=== PATIENT | male | born 1945 | race African-American/Black ===

== ENCOUNTER 2018-07-03 23:56 | Inpatient (IN) | payer OTHER, MEDICAID ==
[~2018-07-03] VITALS: Ht 157.5 cm; Wt 57.6 kg
[~2018-07-03 23:56] MED LIST: ALBUTEROL INH; ASPI-1159 PO; Aspirin PO; BACL-141 PO; BIMA2.5D4 EACHEYE; BRIM15DR2 EACHEYE; CARV3.1242 PO; FAMO40TA7 PO; FURO40TA5 PO; KLUD40 PO; LIP40 PO; LISI10TA5 PO; LISI2.5T47 PO; TAMS0.4C31 PO
[2018-07-04] MEDS ORDERED: METHYLPREDNISOLONE SOD SUCC 125 MG/2 ML VIAL IV STA (00:17)
[2018-07-04] MEDS ORDERED: IPRATROPIUM BROMIDE (0.02%) 0.5MG/2.5ML NEB HHN STA (00:17)
[2018-07-04] MEDS ORDERED: FUROSEMIDE 40MG/4ML VIAL IVP ONE (00:30)
[2018-07-04] MEDS ORDERED: MAGNESIUM 2 G PREMIX 50 ML IV ONE (00:30)
[2018-07-04 00:56] LABS: BASOPHILS % 0.5 % (0.0-2.0); EOSINOPHILS % 1.6 % (0.0-5.0); HEMATOCRIT. 46.5 % (42.0-52.0); HEMOGLOBIN. 15.2 g/dL (14.0-18.0); LYMPHOCYTES % 9.2 % (20.0-50.0); MEAN CORPUSCULAR HEMOGLOBIN 28.8 pg (28.0-32.0); MEAN PLATELET VOLUME 9.1 fl (7.4-10.4); MONOCYTES % 4.6 % (2.0-8.0); NEUTROPHILS % 84.1 % (40.0-76.0); PLATELET 201 x1000/uL (130-400); RED BLOOD CELL COUNT 5.29 mill/uL (4.7-6.1); RED CELL DISTRIBUTION WIDTH 15.4 % (11.6-14.6)
[2018-07-04 00:58] LABS: CHLORIDE 107 mEq/L (98-107)
[2018-07-04] MEDS: ALBUTEROL (0.083%) 2.5MG/3ML NEB HHN SCH ×4 (01:10→02:20)
[2018-07-04 01:57] LABS: INR 1.1; PROTHROMBIN TIME 10.8 sec (9.1-11.1)
[2018-07-04] MEDS ORDERED: AZITHROMYCIN 500 MG in DEXT 5% WATER 250 ML IV SCH (05:00)
[2018-07-04] MEDS ORDERED: CEFTRIAXONE 1 G PREMIX 50 ML IV SCH (05:00)
[2018-07-04] MEDS ORDERED: DIPHENHYDRAMINE 50MG/ML VIAL IV PRN (06:45)
[2018-07-04] MEDS ORDERED: CLONIDINE 0.1MG TABLET PO PRN (06:45)
[2018-07-04] MEDS ORDERED: HYDROCODONE/ACETAMINOPHEN 5/325MG TABLET PO PRN (06:45)
[2018-07-04] MEDS ORDERED: DOCUSATE SODIUM 100MG CAPSULE PO PRN (06:45)
[2018-07-04] MEDS ORDERED: NA PHOS,M-B/NA PHOS,DI-BA ENEMA 118ML PR PRN (06:45)
[2018-07-04] MEDS ORDERED: LEVOFLOXACIN 500MG PREMIX 100 ML IV SCH (06:45)
[2018-07-04] MEDS ORDERED: HYDROMORPHONE HCL/PF 2MG/ML CPJ IV PRN (06:45)
[2018-07-04] MEDS ORDERED: MAGNESIUM/ALUMINUM HYDROXIDE/SIMETHICONE 30ML UDC PO PRN (06:45)
[2018-07-04] MEDS ORDERED: GUAIFENESIN 200MG/10ML SUGAR FREE UDC PO PRN (06:45)
[2018-07-04] MEDS ORDERED: LORAZEPAM 2MG/ML CPJ IV PRN (06:45)
[2018-07-04] MEDS ORDERED: ONDANSETRON HCL 4MG/2ML INJ IV PRN (06:45)
[2018-07-04 07:47] LABS: CHLORIDE 104 mEq/L (98-107)
[2018-07-04] MEDS ORDERED: LEVOFLOXACIN 500MG PREMIX 100 ML IV NR (08:00)
[2018-07-04] MEDS: ASPIRIN 81MG EC TABLET PO SCH (08:38)
[2018-07-04] MEDS: ENOXAPARIN 40MG/0.4ML SYR SUBCUT SCH (08:38)
[2018-07-04] MEDS: FUROSEMIDE 40MG/4ML VIAL IV SCH (08:38)
[2018-07-04] MEDS: METHYLPREDNISOLONE SOD SUCC 125 MG/2 ML VIAL IV SCH ×3 (08:38→20:12)
[2018-07-04] MEDS: ACETAMINOPHEN 325MG TABLET PO PRN (19:44)
[2018-07-04] MEDS ORDERED: MORPHINE SULFATE 4 MG/ML CPJ (NOT FOR IM USE) IV PRN (21:16)
[2018-07-04] MEDS: IPRATROPIUM/ALBUTEROL 0.5-3(2.5)MG/3ML NEB INH PRN (22:10)
[2018-07-04 23:29] VITALS: BP 120/65
[2018-07-04] MEDS ORDERED: IPRA3AMP31 NEB (23:55)
[2018-07-04] MEDS ORDERED: FAMO20TA8 PO (23:55)
[2018-07-05] VITALS (12 sets, daily range): BP systolic 95–118; BP diastolic 50–93
[2018-07-05] MEDS: IPRATROPIUM/ALBUTEROL 0.5-3(2.5)MG/3ML NEB INH PRN ×3 (00:43→18:05)
[2018-07-05] MEDS: METHYLPREDNISOLONE SOD SUCC 125 MG/2 ML VIAL IV SCH ×4 (02:13→21:33)
[2018-07-05] MEDS: ACETAMINOPHEN 325MG TABLET PO PRN ×2 (02:36→13:12)
[2018-07-05] MEDS: INSULIN LISPRO 100 UNITS/ML SUBCUT SCH ×4 (08:11→21:00)
[2018-07-05] MEDS ORDERED: DEXTROSE 50% WATER 50ML SYRINGE IV PRN (08:15)
[2018-07-05] MEDS: BLOOD SUGAR DIAGNOSTIC STRIP TEST SCH ×4 (08:27→21:00)
[2018-07-05] MEDS: ASPIRIN 81MG EC TABLET PO SCH (08:48)
[2018-07-05] MEDS: ENOXAPARIN 40MG/0.4ML SYR SUBCUT SCH (08:52)
[2018-07-05] MEDS: FUROSEMIDE 40MG/4ML VIAL IV SCH (08:52)
[2018-07-05] MEDS: LEVOFLOXACIN 500MG PREMIX 100 ML IV SCH (08:52)
[2018-07-05] MEDS ORDERED: DIPHENHYDRAMINE 25MG CAPSULE PO PRN (11:30)
[2018-07-05 11:34] LABS: BG BASE EXCESS -0.6 mmol/L (-2.0-2.0); BG BILEVEL POS AIRWAY PRESSURE 15/5; BG CARBOXYHEMOGLOBIN 0.5 % (0.5-1.5); BG DEOXYHEMOGLOBIN 0.6 % (0.0-5.0); BG FRACTION INSPIRED OXYGEN 40; BG HCO3 ACT 23.9 mmol/L (22.0-26.0); BG METHEMOGLOBIN 0.4 % (0.0-1.5); BG OXYGEN SATURATION 99.4 % (92.0-98.5); BG OXYHEMOGLOBIN 98.5 % (94.0-97.0); BG PCO2 38.9 mmHg (35.0-45.0); BG PH 7.406 (7.350-7.450); BG PO2 190.6 mmHg (75.0-100.0); BG SAMPLE SITE RIGHT RADIAL; BG TOTAL HEMOGLOBIN 15.7 g/dL (12.0-18.0); BG VENT MODE MASK - BIPAP; BG VENT RATE 14 set
[2018-07-05 14:56] LABS: CLARITY URINE CLEAR (CLEAR); COLOR URINE YELLOW (YELLOW); KETONES URINE TRACE (NEGATIVE); LEUKOCYTE ESTERASE URINE NEGATIVE (NEGATIVE); NITRITE URINE NEGATIVE (NEGATIVE); OCCULT BLOOD URINE NEGATIVE (NEGATIVE); PH URINE 5.5 (4.5-8.0); PROTEIN URINE NEGATIVE (NEGATIVE); SPECIFIC GRAVITY URINE 1.011 (1.005-1.030); UROBILINOGEN URINE 0.2 E.U./dL (0.2-1.0)
[2018-07-05 15:22] LABS: *AMPHETAMINES SCREEN URINE NEGATIVE (NEGATIVE); CANNABINOID URINE SCREEN NEGATIVE (NEGATIVE); METHADONE URINE SCREEN NEGATIVE (NEGATIVE); OPIATES URINE SCREEN NEGATIVE (NEGATIVE); PHENCYCLIDINE URINE SCREEN NEGATIVE (NEGATIVE)
[2018-07-05 15:23] LABS: *BARBITURATES SCREEN URINE NEGATIVE (NEGATIVE); *BENZODIAZEPINES SCREEN URINE NEGATIVE (NEGATIVE); *COCAINE SCREEN URINE NEGATIVE (NEGATIVE)
[2018-07-05] MEDS ORDERED: SODIUM CHLORIDE 10% FOR INH 15ML VIAL NEB INH SCH (17:00)
[2018-07-05 17:11] LABS: BASOPHILS % 0.1 % (0.0-2.0); HEMATOCRIT. 44.7 % (42.0-52.0); LYMPHOCYTES % 13.4 % (20.0-50.0); MEAN CORPUSCULAR HEMOGLOBIN 29.2 pg (28.0-32.0); MEAN CORPUSCULAR VOLUME 87.3 fL (80.0-94.0); MEAN PLATELET VOLUME 8.7 fl (7.4-10.4); MONOCYTES % 6.7 % (2.0-8.0); NEUTROPHILS % 79.8 % (40.0-76.0); PLATELET 162 x1000/uL (130-400); RED BLOOD CELL COUNT 5.12 mill/uL (4.7-6.1); RED CELL DISTRIBUTION WIDTH 15.2 % (11.6-14.6)
[2018-07-05 17:24] LABS: CHLORIDE 102 mEq/L (98-107)
[2018-07-05 17:32] LABS: LDL CHOLESTEROL 81 mg/dL (5-100)
[2018-07-05 17:33] LABS: HDL CHOLESTEROL 57 mg/dL (40-59)
[2018-07-05 17:34] LABS: T4 FREE 1.04 ng/dL (0.76-1.46)
[2018-07-05] MEDS: IPRATROPIUM/ALBUTEROL 0.5-3(2.5)MG/3ML NEB HHN SCH (20:28)
[2018-07-06] VITALS (13 sets, daily range): BP systolic 86–126; BP diastolic 48–69
[2018-07-06] MEDS: IPRATROPIUM/ALBUTEROL 0.5-3(2.5)MG/3ML NEB HHN SCH ×4 (02:00→20:13)
[2018-07-06] MEDS: METHYLPREDNISOLONE SOD SUCC 125 MG/2 ML VIAL IV SCH ×2 (02:00→08:29)
[2018-07-06] MEDS: ACETAMINOPHEN 325MG TABLET PO PRN ×2 (05:53→08:30)
[2018-07-06] MEDS: BLOOD SUGAR DIAGNOSTIC STRIP TEST SCH ×4 (07:30→21:16)
[2018-07-06] MEDS: INSULIN LISPRO 100 UNITS/ML SUBCUT SCH ×4 (08:00→21:32)
[2018-07-06] MEDS: ENOXAPARIN 40MG/0.4ML SYR SUBCUT SCH (08:30)
[2018-07-06] MEDS: FUROSEMIDE 40MG/4ML VIAL IV SCH ×2 (08:30→17:51)
[2018-07-06] MEDS: LEVOFLOXACIN 500MG PREMIX 100 ML IV SCH (08:30)
[2018-07-06] MEDS: ASPIRIN 81MG EC TABLET PO SCH (09:00)
[2018-07-06 09:43] LABS: HEMATOCRIT. 44.9 % (42.0-52.0); HEMOGLOBIN. 14.9 g/dL (14.0-18.0); LYMPHOCYTES % 13.1 % (20.0-50.0); MEAN CORPUSCULAR HEMOGLOBIN 29.1 pg (28.0-32.0); MEAN CORPUSCULAR VOLUME 87.9 fL (80.0-94.0); MEAN PLATELET VOLUME 9.8 fl (7.4-10.4); MONOCYTES % 5.5 % (2.0-8.0); NEUTROPHILS % 81.4 % (40.0-76.0); PLATELET 156 x1000/uL (130-400); RED BLOOD CELL COUNT 5.11 mill/uL (4.7-6.1)
[2018-07-06 10:00] LABS: CHLORIDE 104 mEq/L (98-107)
[2018-07-06] MEDS: CLOPIDOGREL 75MG TABLET PO SCH (11:54)
[2018-07-06] MEDS ORDERED: SODIUM POLYSTYRENE SULFONATE 15 G/60 ML BOT PO NR (15:30)
[2018-07-06] MEDS ORDERED: ATORVASTATIN CALCIUM 40MG TABLET PO SCH (21:00)
[2018-07-06] MEDS: METHYLPREDNISOLONE SOD SUCC 40 MG/ML VIAL IV SCH (21:15)
[2018-07-06] MEDS: CARVEDILOL 3.125 MG TABLET PO SCH (21:16)
[2018-07-07] VITALS (9 sets, daily range): BP systolic 95–115; BP diastolic 37–80
[2018-07-07] MEDS: IPRATROPIUM/ALBUTEROL 0.5-3(2.5)MG/3ML NEB HHN SCH ×3 (01:54→13:15)
[2018-07-07] MEDS: BLOOD SUGAR DIAGNOSTIC STRIP TEST SCH ×2 (05:19→12:30)
[2018-07-07] MEDS: FUROSEMIDE 40MG/4ML VIAL IV SCH ×2 (05:19→17:15)
[2018-07-07] MEDS: INSULIN LISPRO 100 UNITS/ML SUBCUT SCH ×2 (08:00→13:00)
[2018-07-07 08:18] LABS: HEMATOCRIT. 47.7 % (42.0-52.0); HEMOGLOBIN. 15.9 g/dL (14.0-18.0); LYMPHOCYTES % 8.2 % (20.0-50.0); MEAN CORPUSCULAR HEMOGLOBIN 29.1 pg (28.0-32.0); MEAN CORPUSCULAR VOLUME 87.3 fL (80.0-94.0); MEAN PLATELET VOLUME 8.8 fl (7.4-10.4); MONOCYTES % 8.5 % (2.0-8.0); NEUTROPHILS % 83.3 % (40.0-76.0); PLATELET 183 x1000/uL (130-400); RED BLOOD CELL COUNT 5.46 mill/uL (4.7-6.1); RED CELL DISTRIBUTION WIDTH 15.1 % (11.6-14.6)
[2018-07-07 08:25] LABS: CHLORIDE 101 mEq/L (98-107)
[2018-07-07] MEDS: LEVOFLOXACIN 500MG PREMIX 100 ML IV SCH (09:01)
[2018-07-07] MEDS: METHYLPREDNISOLONE SOD SUCC 40 MG/ML VIAL IV SCH (09:02)
[2018-07-07] MEDS: CLOPIDOGREL 75MG TABLET PO SCH (09:04)
[2018-07-07] MEDS: ASPIRIN 81MG EC TABLET PO SCH (09:05)
[2018-07-07] MEDS: CARVEDILOL 3.125 MG TABLET PO SCH (09:05)
[2018-07-07] MEDS: ENOXAPARIN 40MG/0.4ML SYR SUBCUT SCH (09:06)
[2018-07-07] MEDS ORDERED: CARVEDILOL 6.25 MG TABLET PO SCH (21:00)
[2018-07-08] MEDS ORDERED: PREDNISONE 20MG TABLET PO SCH (09:00)
== END 2018-07-07 04:20 | DRG 133 ==
LOC: ER 07-04 00:04 → 5EST 07-04 05:07 → EDBEDREQ 07-04 05:11 → EDBEDREQSVC 07-04 05:11 → EDBEDREQTM 07-04 05:11 → ENRESERV 07-04 20:07
PROVIDERS: ADMIT Internal Medicine; ATTEND Internal Medicine
PROC: 5A09457 Assistance with Respiratory Ventilation, 24-96 Consecutive Hours, Continuous Positive Airway Pressure (ICD-10-PCS; principal; 2018-07-04)
PROC: 5A09357 Assistance with Respiratory Ventilation, Less than 24 Consecutive Hours, Continuous Positive Airway Pressure (ICD-10-PCS; 2018-07-07)
DX: J96.00 Acute respiratory failure, unspecified whether with hypoxia or hypercapnia (principal); D69.2 Other nonthrombocytopenic purpura; E87.5 Hyperkalemia; I50.9 Heart failure, unspecified; I11.0 Hypertensive heart disease with heart failure; I51.3 Intracardiac thrombosis, not elsewhere classified; J44.1 Chronic obstructive pulmonary disease with (acute) exacerbation; I25.10 Atherosclerotic heart disease of native coronary artery without angina pectoris; G40.909 Epilepsy, unspecified, not intractable, without status epilepticus; E11.9 Type 2 diabetes mellitus without complications; D72.829 Elevated white blood cell count, unspecified; I25.5 Ischemic cardiomyopathy; Z86.73 Personal history of transient ischemic attack (TIA), and cerebral infarction without residual deficits; Z95.5 Presence of coronary angioplasty implant and graft; Z74.01 Bed confinement status; Z79.899 Other long term (current) drug therapy; Z99.81 Dependence on supplemental oxygen; Z79.82 Long term (current) use of aspirin; I25.2 Old myocardial infarction
CPT/HCPCS: 36415; 36600; 71045; 80048; 80061; 80305; 82375; 82805; 82962; 83605; 83880; 84439; 84443; 84484; 85379; 93005; 93306; 93970; 94640; 96365; 96366; 96367; 96375; 99291; J0456; J0696; J1200; J1650; J1815; J1940; J1956; J2920; J2930; J3475; J7050; J7060; J7131; J7611; J7620; Q0163

== ENCOUNTER 2018-07-08 04:34 | Inpatient (IN) | payer OTHER, MEDICAID ==
[2018-07-08] VITALS (29 sets, daily range): BP systolic 81–130; BP diastolic 47–86
[~2018-07-08] VITALS: Ht 165.1 cm; Wt 62.3 kg
[~2018-07-08 04:34] MED LIST changes: -ASPI-1159 PO; -BACL-141 PO; -BRIM15DR2 EACHEYE; -CARV3.1242 PO; +FAMO20TA8 PO; -FAMO40TA7 PO; +IPRA3AMP31 NEB
[2018-07-08] MEDS ORDERED: ONDANSETRON HCL 4MG/2ML INJ IV STA (04:41)
[2018-07-08] MEDS ORDERED: IPRATROPIUM BROMIDE (0.02%) 0.5MG/2.5ML NEB HHN STA (04:41)
[2018-07-08] MEDS ORDERED: METHYLPREDNISOLONE SOD SUCC 125 MG/2 ML VIAL IV STA (04:41)
[2018-07-08] MEDS ORDERED: VECURONIUM BROMIDE 10 MG/VIAL IV ONE ×2 (04:45→05:06)
[2018-07-08] MEDS: ALBUTEROL (0.083%) 2.5MG/3ML NEB HHN SCH ×3 (05:00→06:00)
[2018-07-08] MEDS ORDERED: SODIUM CHLORIDE 0.9% 10ML VIAL ONE (05:06)
[2018-07-08] MEDS ORDERED: PROPOFOL 10MG/ML 100ML 100 ML IV ONE (05:15)
[2018-07-08 05:19] LABS: BASOPHILS % 0.1 % (0.0-2.0); HEMATOCRIT. 52.9 % (42.0-52.0); HEMOGLOBIN. 17.5 g/dL (14.0-18.0); LYMPHOCYTES % 8.2 % (20.0-50.0); MEAN CORPUSCULAR HEMOGLOBIN 29.2 pg (28.0-32.0); MEAN CORPUSCULAR VOLUME 88.3 fL (80.0-94.0); MEAN PLATELET VOLUME 9.2 fl (7.4-10.4); MONOCYTES % 13.8 % (2.0-8.0); NEUTROPHILS % 77.9 % (40.0-76.0); PLATELET 241 x1000/uL (130-400); RED BLOOD CELL COUNT 5.99 mill/uL (4.7-6.1); RED CELL DISTRIBUTION WIDTH 14.9 % (11.6-14.6)
[2018-07-08 05:25] LABS: CHLORIDE 102 mEq/L (98-107)
[2018-07-08] MEDS ORDERED: PIPERACILLIN/TAZ 3.375G PREMIX 50 ML IV ONE (05:45)
[2018-07-08] MEDS ORDERED: VANCOMYCIN 1 G PREMIX 200 ML IV ONE (05:45)
[2018-07-08] MEDS ORDERED: ACETAMINOPHEN 650MG SUPP PR ONE (05:45)
[2018-07-08] MEDS ORDERED: SODIUM CHLORIDE 0.9% 1000ML BAG (SEPSIS BOLUS) IV ONE (05:45)
[2018-07-08] MEDS ORDERED: CLONIDINE 0.1MG TABLET PO PRN (07:45)
[2018-07-08] MEDS ORDERED: HYDROCODONE/ACETAMINOPHEN 5/325MG TABLET PO PRN (07:45)
[2018-07-08] MEDS ORDERED: MAGNESIUM/ALUMINUM HYDROXIDE/SIMETHICONE 30ML UDC PO PRN (07:45)
[2018-07-08] MEDS ORDERED: IPRATROPIUM/ALBUTEROL 0.5-3(2.5)MG/3ML NEB INH PRN (07:45)
[2018-07-08] MEDS ORDERED: DOCUSATE SODIUM 100MG CAPSULE PO PRN (07:45)
[2018-07-08] MEDS ORDERED: GUAIFENESIN 200MG/10ML SUGAR FREE UDC PO PRN (07:45)
[2018-07-08] MEDS ORDERED: ENOXAPARIN 40MG/0.4ML SYR SUBCUT SCH (07:45)
[2018-07-08] MEDS ORDERED: LORAZEPAM 2MG/ML CPJ IV PRN (07:45)
[2018-07-08] MEDS ORDERED: NA PHOS,M-B/NA PHOS,DI-BA ENEMA 118ML PR PRN (07:45)
[2018-07-08] MEDS ORDERED: ONDANSETRON HCL 4MG/2ML INJ IV PRN (07:45)
[2018-07-08] MEDS ORDERED: LEVOFLOXACIN 500MG PREMIX 100 ML IV SCH (08:00)
[2018-07-08 08:13] LABS: CHLORIDE 107 mEq/L (98-107)
[2018-07-08 08:45] LABS: BG BASE EXCESS -1.4 mmol/L (-2.0-2.0); BG DEOXYHEMOGLOBIN 0.2 % (0.0-5.0); BG FRACTION INSPIRED OXYGEN 100; BG HCO3 ACT 21.6 mmol/L (22.0-26.0); BG METHEMOGLOBIN 0.3 % (0.0-1.5); BG OXYGEN SATURATION 99.8 % (92.0-98.5); BG OXYHEMOGLOBIN 99.5 % (94.0-97.0); BG PCO2 31.9 mmHg (35.0-45.0); BG PH 7.448 (7.350-7.450); BG PO2 569.9 mmHg (75.0-100.0); BG SAMPLE SITE RIGHT RADIAL; BG TIDAL VOLUME(mL) 550 mL; BG TOTAL HEMOGLOBIN 15.2 g/dL (12.0-18.0); BG VENT MODE VENT - A/C; BG VENT RATE 14 set
[2018-07-08] MEDS ORDERED: ASPIRIN 81MG EC TABLET PO SCH (09:00)
[2018-07-08] MEDS ORDERED: LEVOFLOXACIN 500MG PREMIX 100 ML IV NR (09:00)
[2018-07-08] MEDS: FUROSEMIDE 40MG/4ML VIAL IV SCH ×2 (09:41→16:42)
[2018-07-08] MEDS ORDERED: PIPERACILLIN/TAZ 3.375G PREMIX 50 ML IV SCH (12:30)
[2018-07-08] MEDS ORDERED: IPRATROPIUM/ALBUTEROL 0.5-3(2.5)MG/3ML NEB HHN PRN (12:30)
[2018-07-08] MEDS ORDERED: DEXTROSE 50% WATER 50ML SYRINGE IV PRN (14:15)
[2018-07-08] MEDS: PROPOFOL 10MG/ML 100ML 100 ML IV PRN (14:26)
[2018-07-08] MEDS: PANTOPRAZOLE SODIUM 40 MG/VIAL IV SCH (15:28)
[2018-07-08] MEDS: IPRATROPIUM/ALBUTEROL 0.5-3(2.5)MG/3ML NEB HHN SCH ×2 (15:55→20:37)
[2018-07-08] MEDS: PIPERACILLIN/TAZ 3.375G PREMIX 50 ML IV SCH (16:42)
[2018-07-08] MEDS: ENOXAPARIN 40MG/0.4ML SYR SUBCUT SCH (16:42)
[2018-07-08] MEDS: BLOOD SUGAR DIAGNOSTIC STRIP TEST SCH (17:39)
[2018-07-08] MEDS: INSULIN LISPRO 100 UNITS/ML SUBCUT SCH (17:39)
[2018-07-08] MEDS: VANCOMYCIN 1 G PREMIX 200 ML IV SCH (17:51)
[2018-07-08] MEDS: NOREPINEPHRINE 4 MG in DEXT 5% WATER 246 ML IV PRN (19:58)
[2018-07-09] VITALS (93 sets, daily range): BP systolic 75–132; BP diastolic 23–99
[2018-07-09] MEDS: IPRATROPIUM/ALBUTEROL 0.5-3(2.5)MG/3ML NEB HHN SCH ×6 (00:02→20:26)
[2018-07-09] MEDS: PIPERACILLIN/TAZ 3.375G PREMIX 50 ML IV SCH ×4 (00:37→21:15)
[2018-07-09] MEDS: BLOOD SUGAR DIAGNOSTIC STRIP TEST SCH ×5 (00:37→23:47)
[2018-07-09] MEDS: INSULIN LISPRO 100 UNITS/ML SUBCUT SCH ×5 (05:34→23:46)
[2018-07-09] MEDS: VANCOMYCIN 1 G PREMIX 200 ML IV SCH ×2 (05:34→18:18)
[2018-07-09] MEDS: PROPOFOL 10MG/ML 100ML 100 ML IV PRN (05:35)
[2018-07-09 06:09] LABS: BASOPHILS % 0.1 % (0.0-2.0); HEMATOCRIT. 48.7 % (42.0-52.0); HEMOGLOBIN. 16.3 g/dL (14.0-18.0); LYMPHOCYTES % 10.1 % (20.0-50.0); MEAN CORPUSCULAR VOLUME 86.6 fL (80.0-94.0); MEAN PLATELET VOLUME 9.2 fl (7.4-10.4); MONOCYTES % 12.7 % (2.0-8.0); NEUTROPHILS % 77.1 % (40.0-76.0); PLATELET 184 x1000/uL (130-400); RED BLOOD CELL COUNT 5.62 mill/uL (4.7-6.1); RED CELL DISTRIBUTION WIDTH 14.8 % (11.6-14.6)
[2018-07-09 06:12] LABS: CHLORIDE 103 mEq/L (98-107)
[2018-07-09 06:33] LABS: LDL CHOLESTEROL 87 mg/dL (5-100); T4 FREE 1.67 ng/dL (0.76-1.46)
[2018-07-09 06:34] LABS: HDL CHOLESTEROL 50 mg/dL (40-59)
[2018-07-09 07:54] LABS: BG BASE EXCESS 5.5 mmol/L (-2.0-2.0); BG CARBOXYHEMOGLOBIN 0.3 % (0.5-1.5); BG DEOXYHEMOGLOBIN 0.4 % (0.0-5.0); BG METHEMOGLOBIN 0.2 % (0.0-1.5); BG OXYGEN SATURATION 99.6 % (92.0-98.5); BG OXYHEMOGLOBIN 99.1 % (94.0-97.0); BG PH 7.558 (7.350-7.450); BG PO2 269.7 mmHg (75.0-100.0); BG SAMPLE SITE RIGHT RADIAL; BG TIDAL VOLUME(mL) 550 mL; BG TOTAL HEMOGLOBIN 15.9 g/dL (12.0-18.0); BG VENT MODE VENT - A/C; BG VENT RATE 12 set
[2018-07-09] MEDS: FUROSEMIDE 40MG/4ML VIAL IV SCH ×2 (08:53→16:54)
[2018-07-09] MEDS: PANTOPRAZOLE SODIUM 40 MG/VIAL IV SCH (08:53)
[2018-07-09] MEDS: ASPIRIN 81MG TABLET PO SCH (08:54)
[2018-07-09] MEDS ORDERED: POTASSIUM CHLORIDE 20MEQ/PACKET PO SCH (11:00)
[2018-07-09] MEDS ORDERED: POTASSIUM CHLORIDE INJ 40 MEQ in DEXT 5% WATER 250 ML IV SCH (12:00)
[2018-07-09] MEDS: NOREPINEPHRINE 4 MG in DEXT 5% WATER 246 ML IV PRN ×2 (13:16→23:30)
[2018-07-09] MEDS: MORPHINE SULFATE 4 MG/ML CPJ (NOT FOR IM USE) IV PRN ×2 (13:42→20:22)
[2018-07-09] MEDS ORDERED: IOHEXOL-350 100 ML BOTTLE ONE (14:23)
[2018-07-09] MEDS ORDERED: PIPERACILLIN/TAZ 3.375G PREMIX 50 ML IV SCH (16:00)
[2018-07-09] MEDS: ENOXAPARIN 40MG/0.4ML SYR SUBCUT SCH (16:54)
[2018-07-09] MEDS ORDERED: PROPOFOL 10MG/ML 100ML 100 ML IV PRN (18:45)
[2018-07-09 19:11] LABS: INR 1.2; PROTHROMBIN TIME 12.1 sec (9.6-11.0)
[2018-07-10] VITALS (60 sets, daily range): BP systolic 34–131; BP diastolic 16–110
[2018-07-10 00:04] LABS: CLARITY URINE CLEAR (CLEAR); COLOR URINE YELLOW (YELLOW); KETONES URINE NEGATIVE (NEGATIVE); LEUKOCYTE ESTERASE URINE NEGATIVE (NEGATIVE); NITRITE URINE NEGATIVE (NEGATIVE); OCCULT BLOOD URINE 2+ (NEGATIVE); PROTEIN URINE NEGATIVE (NEGATIVE); SPECIFIC GRAVITY URINE 1.015 (1.005-1.030); UROBILINOGEN URINE 0.2 E.U./dL (0.2-1.0)
[2018-07-10] MEDS: IPRATROPIUM/ALBUTEROL 0.5-3(2.5)MG/3ML NEB HHN SCH ×6 (00:09→20:41)
[2018-07-10] MEDS: PROPOFOL 10MG/ML 100ML 100 ML IV PRN ×2 (00:21→17:20)
[2018-07-10] MEDS: PIPERACILLIN/TAZ 3.375G PREMIX 50 ML IV SCH ×4 (04:49→21:44)
[2018-07-10] MEDS: INSULIN LISPRO 100 UNITS/ML SUBCUT SCH ×4 (05:00→23:15)
[2018-07-10] MEDS: BLOOD SUGAR DIAGNOSTIC STRIP TEST SCH ×4 (05:01→23:15)
[2018-07-10] MEDS: VANCOMYCIN 1 G PREMIX 200 ML IV SCH (05:02)
[2018-07-10 05:42] LABS: HEMATOCRIT. 48.2 % (42.0-52.0); MEAN CORPUSCULAR HEMOGLOBIN 28.9 pg (28.0-32.0); MEAN CORPUSCULAR VOLUME 87.1 fL (80.0-94.0); MEAN PLATELET VOLUME 9.5 fl (7.4-10.4); PLATELET 145 x1000/uL (130-400); RED BLOOD CELL COUNT 5.54 mill/uL (4.7-6.1); RED CELL DISTRIBUTION WIDTH 14.7 % (11.6-14.6)
[2018-07-10 06:19] LABS: CHLORIDE 99 mEq/L (98-107)
[2018-07-10 08:19] LABS: PLATELET ESTIMATE NORMAL
[2018-07-10] MEDS: FUROSEMIDE 40MG/4ML VIAL IV SCH ×2 (09:04→17:00)
[2018-07-10] MEDS: ASPIRIN 81MG TABLET PO SCH (09:04)
[2018-07-10] MEDS: ACETAMINOPHEN 325MG TABLET PO PRN (09:05)
[2018-07-10] MEDS: PANTOPRAZOLE SODIUM 40 MG/VIAL IV SCH (09:33)
[2018-07-10 10:37] LABS: BG CARBOXYHEMOGLOBIN 0.5 % (0.5-1.5); BG DEOXYHEMOGLOBIN 0.9 % (0.0-5.0); BG FRACTION INSPIRED OXYGEN 40; BG HCO3 ACT 34.8 mmol/L (22.0-26.0); BG METHEMOGLOBIN 0.7 % (0.0-1.5); BG OXYGEN SATURATION 99.1 % (92.0-98.5); BG OXYHEMOGLOBIN 97.9 % (94.0-97.0); BG PCO2 46.2 mmHg (35.0-45.0); BG PH 7.495 (7.350-7.450); BG PO2 167.1 mmHg (75.0-100.0); BG PRESSURE SUPPORT 12; BG SAMPLE SITE LEFT BRACHIAL; BG TIDAL VOLUME(mL) 550 mL; BG TOTAL HEMOGLOBIN 16.5 g/dL (12.0-18.0); BG VENT MODE VENT - SIMV; BG VENT RATE 8 set
[2018-07-10] MEDS: ENOXAPARIN 40MG/0.4ML SYR SUBCUT SCH (17:20)
[2018-07-10] MEDS: VANCOMYCIN 750 MG PREMIX 150 ML IV SCH (18:20)
[2018-07-10] MEDS: NOREPINEPHRINE 4 MG in DEXT 5% WATER 246 ML IV PRN (18:43)
[2018-07-10] MEDS ORDERED: PROPOFOL 10MG/ML 100ML 100 ML IV PRN (21:00)
[2018-07-11] VITALS (91 sets, daily range): BP systolic 75–122; BP diastolic 31–79
[2018-07-11] MEDS: IPRATROPIUM/ALBUTEROL 0.5-3(2.5)MG/3ML NEB HHN SCH ×7 (00:22→23:38)
[2018-07-11] MEDS: PIPERACILLIN/TAZ 3.375G PREMIX 50 ML IV SCH ×4 (03:32→22:17)
[2018-07-11] MEDS: INSULIN LISPRO 100 UNITS/ML SUBCUT SCH ×3 (05:37→17:57)
[2018-07-11] MEDS: BLOOD SUGAR DIAGNOSTIC STRIP TEST SCH ×3 (05:37→17:57)
[2018-07-11] MEDS: VANCOMYCIN 750 MG PREMIX 150 ML IV SCH ×2 (05:40→17:56)
[2018-07-11 05:50] LABS: CHLORIDE 97 mEq/L (98-107)
[2018-07-11 06:01] LABS: HEMATOCRIT. 45.4 % (42.0-52.0); HEMOGLOBIN. 15.3 g/dL (14.0-18.0); MEAN CORPUSCULAR HEMOGLOBIN 29.1 pg (28.0-32.0); MEAN CORPUSCULAR VOLUME 86.6 fL (80.0-94.0); MEAN PLATELET VOLUME 9.7 fl (7.4-10.4); PLATELET 153 x1000/uL (130-400); RED BLOOD CELL COUNT 5.24 mill/uL (4.7-6.1); RED CELL DISTRIBUTION WIDTH 14.8 % (11.6-14.6)
[2018-07-11] MEDS ORDERED: POTASSIUM CHLORIDE 20MEQ/PACKET PO SCH (08:15)
[2018-07-11 09:24] LABS: PLATELET ESTIMATE NORMAL
[2018-07-11] MEDS: PANTOPRAZOLE SODIUM 40 MG/VIAL IV SCH (09:46)
[2018-07-11] MEDS: FUROSEMIDE 40MG/4ML VIAL IV SCH ×2 (09:46→17:56)
[2018-07-11] MEDS: ASPIRIN 81MG TABLET PO SCH (09:46)
[2018-07-11 12:08] LABS: BG BASE EXCESS 10.1 mmol/L (-2.0-2.0); BG CARBOXYHEMOGLOBIN 0.2 % (0.5-1.5); BG METHEMOGLOBIN 0.3 % (0.0-1.5); BG OXYHEMOGLOBIN 98.5 % (94.0-97.0); BG PCO2 46.8 mmHg (35.0-45.0); BG PH 7.492 (7.350-7.450); BG PO2 148.4 mmHg (75.0-100.0); BG SAMPLE SITE LEFT BRACHIAL; BG TIDAL VOLUME(mL) 550 mL; BG TOTAL HEMOGLOBIN 16.2 g/dL (12.0-18.0); BG VENT MODE VENT - SIMV; BG VENT RATE 8 set
[2018-07-11 15:41] LABS: BG BASE EXCESS 10.2 mmol/L (-2.0-2.0); BG CARBOXYHEMOGLOBIN 0.9 % (0.5-1.5); BG DEOXYHEMOGLOBIN 0.8 % (0.0-5.0); BG FRACTION INSPIRED OXYGEN 40; BG HCO3 ACT 34.9 mmol/L (22.0-26.0); BG METHEMOGLOBIN 0.4 % (0.0-1.5); BG OXYGEN SATURATION 99.2 % (92.0-98.5); BG OXYHEMOGLOBIN 97.9 % (94.0-97.0); BG PCO2 45.8 mmHg (35.0-45.0); BG PO2 154.6 mmHg (75.0-100.0); BG PRESSURE SUPPORT 10; BG SAMPLE SITE LEFT RADIAL; BG TIDAL VOLUME(mL) 550 mL; BG VENT MODE VENT - SIMV; BG VENT RATE 4 set
[2018-07-11] MEDS: NOREPINEPHRINE 4 MG in DEXT 5% WATER 246 ML IV PRN (16:53)
[2018-07-11] MEDS: ENOXAPARIN 40MG/0.4ML SYR SUBCUT SCH (16:53)
[2018-07-11 20:58] LABS: BG BASE EXCESS 11.3 mmol/L (-2.0-2.0); BG CARBOXYHEMOGLOBIN 0.7 % (0.5-1.5); BG FRACTION INSPIRED OXYGEN 40; BG METHEMOGLOBIN 0.5 % (0.0-1.5); BG OXYHEMOGLOBIN 97.8 % (94.0-97.0); BG PCO2 46.2 mmHg (35.0-45.0); BG PO2 142.8 mmHg (75.0-100.0); BG PRESSURE SUPPORT 8; BG SAMPLE SITE RIGHT RADIAL; BG TOTAL HEMOGLOBIN 15.8 g/dL (12.0-18.0); BG VENT MODE VENT - CPAP
[2018-07-12] VITALS (84 sets, daily range): BP systolic 79–117; BP diastolic 37–81
[2018-07-12] MEDS: BLOOD SUGAR DIAGNOSTIC STRIP TEST SCH ×4 (00:04→18:33)
[2018-07-12] MEDS: PIPERACILLIN/TAZ 3.375G PREMIX 50 ML IV SCH ×4 (03:20→22:14)
[2018-07-12] MEDS: IPRATROPIUM/ALBUTEROL 0.5-3(2.5)MG/3ML NEB HHN SCH ×6 (03:59→22:58)
[2018-07-12 05:41] LABS: BASOPHILS % 0.1 % (0.0-2.0); EOSINOPHILS % 3.5 % (0.0-5.0); HEMATOCRIT. 43.8 % (42.0-52.0); HEMOGLOBIN. 14.6 g/dL (14.0-18.0); LYMPHOCYTES % 12.7 % (20.0-50.0); MEAN CORPUSCULAR VOLUME 87.1 fL (80.0-94.0); MEAN PLATELET VOLUME 9.9 fl (7.4-10.4); MONOCYTES % 12.1 % (2.0-8.0); NEUTROPHILS % 71.6 % (40.0-76.0); PLATELET 145 x1000/uL (130-400); RED BLOOD CELL COUNT 5.03 mill/uL (4.7-6.1); RED CELL DISTRIBUTION WIDTH 14.8 % (11.6-14.6)
[2018-07-12] MEDS: INSULIN LISPRO 100 UNITS/ML SUBCUT SCH ×4 (06:00→18:00)
[2018-07-12] MEDS: VANCOMYCIN 750 MG PREMIX 150 ML IV SCH ×2 (06:52→18:33)
[2018-07-12 08:32] LABS: CHLORIDE 98 mEq/L (98-107)
[2018-07-12] MEDS ORDERED: POTASSIUM CHLORIDE 20MEQ/PACKET PO NR (09:45)
[2018-07-12] MEDS: PANTOPRAZOLE SODIUM 40 MG/VIAL IV SCH (09:47)
[2018-07-12] MEDS: FUROSEMIDE 40MG/4ML VIAL IV SCH ×2 (09:47→16:49)
[2018-07-12] MEDS: ASPIRIN 81MG TABLET PO SCH (09:47)
[2018-07-12 10:19] LABS: BG BASE EXCESS 11.6 mmol/L (-2.0-2.0); BG CARBOXYHEMOGLOBIN 0.4 % (0.5-1.5); BG DEOXYHEMOGLOBIN 1.7 % (0.0-5.0); BG HCO3 ACT 36.5 mmol/L (22.0-26.0); BG METHEMOGLOBIN 0.2 % (0.0-1.5); BG OXYGEN SATURATION 98.3 % (92.0-98.5); BG OXYHEMOGLOBIN 97.7 % (94.0-97.0); BG PCO2 47.8 mmHg (35.0-45.0); BG PH 7.501 (7.350-7.450); BG SAMPLE SITE LEFT RADIAL; BG TIDAL VOLUME(mL) 550 mL; BG TOTAL HEMOGLOBIN 15.2 g/dL (12.0-18.0); BG VENT MODE VENT - SIMV; BG VENT RATE 8 set
[2018-07-12] MEDS: DEXT 5%/0.45% NACL 1000ML 1,000 ML IV SCH (10:36)
[2018-07-12] MEDS: ENOXAPARIN 40MG/0.4ML SYR SUBCUT SCH (16:48)
[2018-07-12 22:52] LABS: CHLORIDE 98 mEq/L (98-107)
[2018-07-13] VITALS (75 sets, daily range): BP systolic 83–122; BP diastolic 38–81
[2018-07-13] MEDS: BLOOD SUGAR DIAGNOSTIC STRIP TEST SCH ×4 (00:25→17:11)
[2018-07-13] MEDS ORDERED: POTASSIUM CHLORIDE INJ 40 MEQ in DEXT 5% WATER 250 ML IV NR (01:00)
[2018-07-13] MEDS: PIPERACILLIN/TAZ 3.375G PREMIX 50 ML IV SCH ×4 (03:06→21:30)
[2018-07-13] MEDS: IPRATROPIUM/ALBUTEROL 0.5-3(2.5)MG/3ML NEB HHN SCH ×4 (04:11→20:50)
[2018-07-13 05:20] LABS: BASOPHILS % 0.1 % (0.0-2.0); HEMATOCRIT. 42.2 % (42.0-52.0); LYMPHOCYTES % 12.1 % (20.0-50.0); MEAN CORPUSCULAR HEMOGLOBIN 28.9 pg (28.0-32.0); MEAN CORPUSCULAR VOLUME 87.4 fL (80.0-94.0); MEAN PLATELET VOLUME 9.7 fl (7.4-10.4); MONOCYTES % 13.2 % (2.0-8.0); NEUTROPHILS % 71.6 % (40.0-76.0); PLATELET 126 x1000/uL (130-400); RED BLOOD CELL COUNT 4.83 mill/uL (4.7-6.1); RED CELL DISTRIBUTION WIDTH 15.1 % (11.6-14.6)
[2018-07-13] MEDS: INSULIN LISPRO 100 UNITS/ML SUBCUT SCH ×4 (05:31→17:36)
[2018-07-13] MEDS: VANCOMYCIN 750 MG PREMIX 150 ML IV SCH ×2 (05:32→17:11)
[2018-07-13 05:46] LABS: CHLORIDE 96 mEq/L (98-107)
[2018-07-13] MEDS: PANTOPRAZOLE SODIUM 40 MG/VIAL IV SCH (09:37)
[2018-07-13] MEDS: ASPIRIN 81MG TABLET PO SCH (09:37)
[2018-07-13] MEDS: FUROSEMIDE 40MG/4ML VIAL IV SCH ×2 (09:37→17:11)
[2018-07-13 13:36] LABS: BG BASE EXCESS 11.6 mmol/L (-2.0-2.0); BG CARBOXYHEMOGLOBIN 0.4 % (0.5-1.5); BG DEOXYHEMOGLOBIN 1.4 % (0.0-5.0); BG FRACTION INSPIRED OXYGEN 40; BG HCO3 ACT 36.6 mmol/L (22.0-26.0); BG METHEMOGLOBIN 0.1 % (0.0-1.5); BG OXYGEN SATURATION 98.6 % (92.0-98.5); BG OXYHEMOGLOBIN 98.1 % (94.0-97.0); BG PCO2 48.6 mmHg (35.0-45.0); BG PH 7.495 (7.350-7.450); BG PO2 121.2 mmHg (75.0-100.0); BG PRESSURE SUPPORT 10; BG SAMPLE SITE RIGHT RADIAL; BG TIDAL VOLUME(mL) 550 mL; BG TOTAL HEMOGLOBIN 14.7 g/dL (12.0-18.0); BG VENT MODE VENT - SIMV; BG VENT RATE 8 set
[2018-07-13] MEDS ORDERED: POTASSIUM CHLORIDE INJ 40 MEQ in DEXT 5% WATER 250 ML IV SCH (16:00)
[2018-07-13] MEDS: ENOXAPARIN 40MG/0.4ML SYR SUBCUT SCH (16:45)
[2018-07-14] VITALS (80 sets, daily range): BP systolic 70–127; BP diastolic 34–80
[2018-07-14] MEDS: IPRATROPIUM/ALBUTEROL 0.5-3(2.5)MG/3ML NEB HHN SCH ×6 (00:25→20:45)
[2018-07-14] MEDS: PIPERACILLIN/TAZ 3.375G PREMIX 50 ML IV SCH ×4 (03:56→21:38)
[2018-07-14] MEDS: INSULIN LISPRO 100 UNITS/ML SUBCUT SCH ×4 (06:00→23:53)
[2018-07-14] MEDS: BLOOD SUGAR DIAGNOSTIC STRIP TEST SCH ×5 (06:00→23:51)
[2018-07-14] MEDS: VANCOMYCIN 750 MG PREMIX 150 ML IV SCH ×2 (06:02→18:30)
[2018-07-14] MEDS: PANTOPRAZOLE SODIUM 40 MG/VIAL IV SCH (10:17)
[2018-07-14] MEDS: FUROSEMIDE 40MG/4ML VIAL IV SCH ×2 (10:17→18:30)
[2018-07-14] MEDS ORDERED: LIDOCAINE HCL/PF 1% 2ML VIAL ONE (10:35)
[2018-07-14] MEDS: ASPIRIN 81MG TABLET PO SCH (10:44)
[2018-07-14 10:58] LABS: BG CARBOXYHEMOGLOBIN 0.3 % (0.5-1.5); BG CPAP (cmH2O) 0 cm(H2O); BG DEOXYHEMOGLOBIN 1.5 % (0.0-5.0); BG HCO3 ACT 39.7 mmol/L (22.0-26.0); BG METHEMOGLOBIN 0.4 % (0.0-1.5); BG OXYGEN SATURATION 98.5 % (92.0-98.5); BG OXYHEMOGLOBIN 97.8 % (94.0-97.0); BG PCO2 52.9 mmHg (35.0-45.0); BG PH 7.493 (7.350-7.450); BG PO2 119.5 mmHg (75.0-100.0); BG SAMPLE SITE LEFT RADIAL; BG TOTAL HEMOGLOBIN 14.6 g/dL (12.0-18.0); BG VENT MODE VENT - CPAP
[2018-07-14 13:28] LABS: BASOPHILS % 0.5 % (0.0-2.0); EOSINOPHILS % 2.6 % (0.0-5.0); HEMOGLOBIN. 14.1 g/dL (14.0-18.0); LYMPHOCYTES % 12.8 % (20.0-50.0); MEAN CORPUSCULAR HEMOGLOBIN 29.3 pg (28.0-32.0); MEAN CORPUSCULAR VOLUME 87.2 fL (80.0-94.0); MEAN PLATELET VOLUME 9.2 fl (7.4-10.4); MONOCYTES % 13.5 % (2.0-8.0); NEUTROPHILS % 70.6 % (40.0-76.0); PLATELET 139 x1000/uL (130-400); RED BLOOD CELL COUNT 4.82 mill/uL (4.7-6.1); RED CELL DISTRIBUTION WIDTH 15.1 % (11.6-14.6)
[2018-07-14 13:45] LABS: CHLORIDE 96 mEq/L (98-107)
[2018-07-14] MEDS ORDERED: SODIUM CHLORIDE 0.9% 500 ML IV NR (14:30)
[2018-07-14] MEDS ORDERED: ALBUMIN HUMAN 12.5GM/50ML (25%) IV NR (15:30)
[2018-07-14] MEDS: DEXT 5%/0.45% NACL 1000ML 1,000 ML IV SCH (16:35)
[2018-07-14] MEDS ORDERED: POTASSIUM CHLORIDE 20MEQ TABLET SR PO NR (17:45)
[2018-07-15] VITALS (42 sets, daily range): BP systolic 81–117; BP diastolic 44–70
[2018-07-15] MEDS: IPRATROPIUM/ALBUTEROL 0.5-3(2.5)MG/3ML NEB HHN SCH ×6 (00:24→21:33)
[2018-07-15] MEDS: PIPERACILLIN/TAZ 3.375G PREMIX 50 ML IV SCH ×4 (03:58→21:05)
[2018-07-15] MEDS: BLOOD SUGAR DIAGNOSTIC STRIP TEST SCH ×3 (05:20→17:19)
[2018-07-15] MEDS: INSULIN LISPRO 100 UNITS/ML SUBCUT SCH ×3 (05:20→17:19)
[2018-07-15] MEDS: VANCOMYCIN 750 MG PREMIX 150 ML IV SCH ×2 (05:24→17:20)
[2018-07-15 08:25] LABS: BG BASE EXCESS 10.1 mmol/L (-2.0-2.0); BG CARBOXYHEMOGLOBIN 0.3 % (0.5-1.5); BG DEOXYHEMOGLOBIN 1.2 % (0.0-5.0); BG FRACTION INSPIRED OXYGEN 40; BG HCO3 ACT 35.2 mmol/L (22.0-26.0); BG METHEMOGLOBIN 0.1 % (0.0-1.5); BG OXYGEN SATURATION 98.8 % (92.0-98.5); BG OXYHEMOGLOBIN 98.4 % (94.0-97.0); BG PH 7.474 (7.350-7.450); BG SAMPLE SITE RIGHT BRACHIAL; BG TOTAL HEMOGLOBIN 12.8 g/dL (12.0-18.0); BG VENT MODE MASK - AEROSOL
[2018-07-15] MEDS: ASPIRIN 81MG TABLET PO SCH (10:03)
[2018-07-15] MEDS: FUROSEMIDE 40MG/4ML VIAL IV SCH ×2 (10:03→17:06)
[2018-07-15] MEDS: PANTOPRAZOLE SODIUM 40 MG/VIAL IV SCH (11:13)
[2018-07-15] MEDS: ACETAMINOPHEN 325MG TABLET PO PRN (23:33)
[2018-07-16] VITALS (59 sets, daily range): BP systolic 74–126; BP diastolic 38–78
[2018-07-16] MEDS: IPRATROPIUM/ALBUTEROL 0.5-3(2.5)MG/3ML NEB HHN SCH ×6 (00:51→21:17)
[2018-07-16] MEDS: DEXT 5%/0.45% NACL 1000ML 1,000 ML IV SCH (04:26)
[2018-07-16] MEDS: INSULIN LISPRO 100 UNITS/ML SUBCUT SCH ×5 (05:30→23:55)
[2018-07-16] MEDS: BLOOD SUGAR DIAGNOSTIC STRIP TEST SCH ×5 (05:31→23:55)
[2018-07-16 07:37] LABS: BASOPHILS % 0.4 % (0.0-2.0); EOSINOPHILS % 4.4 % (0.0-5.0); HEMATOCRIT. 37.2 % (42.0-52.0); HEMOGLOBIN. 12.6 g/dL (14.0-18.0); LYMPHOCYTES % 11.8 % (20.0-50.0); MEAN CORPUSCULAR HEMOGLOBIN 29.4 pg (28.0-32.0); MEAN PLATELET VOLUME 9.5 fl (7.4-10.4); MONOCYTES % 11.9 % (2.0-8.0); NEUTROPHILS % 71.5 % (40.0-76.0); PLATELET 149 x1000/uL (130-400); RED BLOOD CELL COUNT 4.27 mill/uL (4.7-6.1); RED CELL DISTRIBUTION WIDTH 14.9 % (11.6-14.6)
[2018-07-16 07:48] LABS: CHLORIDE 97 mEq/L (98-107)
[2018-07-16] MEDS ORDERED: POTASSIUM CHLORIDE 20MEQ/PACKET PO SCH (09:00)
[2018-07-16] MEDS: PANTOPRAZOLE SODIUM 40 MG/VIAL IV SCH (09:00)
[2018-07-16] MEDS: ASPIRIN 81MG TABLET PO SCH (09:00)
[2018-07-16] MEDS: FUROSEMIDE 40MG/4ML VIAL IV SCH ×2 (11:39→18:27)
[2018-07-16] MEDS: ENOXAPARIN 40MG/0.4ML SYR SUBCUT SCH ×2 (16:39→16:48)
[2018-07-17] VITALS (24 sets, daily range): BP systolic 84–128; BP diastolic 42–71
[2018-07-17] MEDS: IPRATROPIUM/ALBUTEROL 0.5-3(2.5)MG/3ML NEB HHN SCH ×6 (00:59→20:36)
[2018-07-17 05:26] LABS: CHLORIDE 96 mEq/L (98-107)
[2018-07-17] MEDS: INSULIN LISPRO 100 UNITS/ML SUBCUT SCH ×3 (06:00→16:23)
[2018-07-17] MEDS: BLOOD SUGAR DIAGNOSTIC STRIP TEST SCH ×3 (06:00→16:23)
[2018-07-17 06:13] LABS: BASOPHILS % 0.7 % (0.0-2.0); EOSINOPHILS % 4.2 % (0.0-5.0); HEMATOCRIT. 35.9 % (42.0-52.0); HEMOGLOBIN. 12.2 g/dL (14.0-18.0); LYMPHOCYTES % 21.4 % (20.0-50.0); MEAN CORPUSCULAR HEMOGLOBIN 29.5 pg (28.0-32.0); MEAN CORPUSCULAR VOLUME 86.8 fL (80.0-94.0); MONOCYTES % 9.2 % (2.0-8.0); NEUTROPHILS % 64.5 % (40.0-76.0); PLATELET 156 x1000/uL (130-400); RED BLOOD CELL COUNT 4.13 mill/uL (4.7-6.1); RED CELL DISTRIBUTION WIDTH 14.9 % (11.6-14.6)
[2018-07-17] MEDS: PANTOPRAZOLE SODIUM 40 MG/VIAL IV SCH (09:33)
[2018-07-17] MEDS: FUROSEMIDE 40MG/4ML VIAL IV SCH ×2 (09:33→16:12)
[2018-07-17] MEDS: ASPIRIN 81MG TABLET PO SCH (09:33)
[2018-07-17] MEDS: DEXT 5%/0.45% NACL 1000ML 1,000 ML IV SCH (09:34)
[2018-07-17] MEDS ORDERED: IPRATROPIUM/ALBUTEROL 0.5-3(2.5)MG/3ML NEB NEB SCH (11:45)
[2018-07-17] MEDS: ENOXAPARIN 40MG/0.4ML SYR SUBCUT SCH ×2 (16:12→16:27)
[2018-07-17] MEDS: ATORVASTATIN CALCIUM 40MG TABLET PO SCH (20:34)
[2018-07-17] MEDS: TAMSULOSIN HCL 0.4MG SR CAPSULE PO SCH (20:37)
[2018-07-18] VITALS: BP_SYST 110; BP_DIAS 67; BP_DIAS 70
[2018-07-18] MEDS: IPRATROPIUM/ALBUTEROL 0.5-3(2.5)MG/3ML NEB HHN SCH ×6 (00:33→21:23)
[2018-07-18] MEDS: BLOOD SUGAR DIAGNOSTIC STRIP TEST SCH ×4 (00:45→18:00)
[2018-07-18] MEDS: DIPHENHYDRAMINE 50MG/ML VIAL IV PRN (02:00)
[2018-07-18 04:00] VITALS: BP 110/70
[2018-07-18] MEDS: INSULIN LISPRO 100 UNITS/ML SUBCUT SCH ×3 (06:00→12:00)
[2018-07-18 06:59] LABS: BASOPHILS % 0.9 % (0.0-2.0); EOSINOPHILS % 6.3 % (0.0-5.0); HEMATOCRIT. 35.7 % (42.0-52.0); HEMOGLOBIN. 11.9 g/dL (14.0-18.0); LYMPHOCYTES % 29.2 % (20.0-50.0); MEAN CORPUSCULAR HEMOGLOBIN 28.8 pg (28.0-32.0); MEAN CORPUSCULAR VOLUME 86.4 fL (80.0-94.0); MEAN PLATELET VOLUME 8.7 fl (7.4-10.4); MONOCYTES % 10.2 % (2.0-8.0); NEUTROPHILS % 53.4 % (40.0-76.0); PLATELET 152 x1000/uL (130-400); RED BLOOD CELL COUNT 4.13 mill/uL (4.7-6.1); RED CELL DISTRIBUTION WIDTH 14.6 % (11.6-14.6)
[2018-07-18 07:27] LABS: CHLORIDE 95 mEq/L (98-107)
[2018-07-18 08:00] VITALS: BP 101/43
[2018-07-18] MEDS: FUROSEMIDE 40MG/4ML VIAL IV SCH ×2 (09:02→17:34)
[2018-07-18] MEDS: ASPIRIN 81MG TABLET PO SCH (09:02)
[2018-07-18] MEDS ORDERED: POTASSIUM CHLORIDE 20MEQ TABLET SR PO NR (09:15)
[2018-07-18 12:00] VITALS: BP 104/62
[2018-07-18 16:00] VITALS: BP 110/68
[2018-07-18] MEDS: ENOXAPARIN 40MG/0.4ML SYR SUBCUT SCH (17:34)
[2018-07-18 20:00] VITALS: BP 107/58
[2018-07-18] MEDS: TAMSULOSIN HCL 0.4MG SR CAPSULE PO SCH (21:12)
[2018-07-18] MEDS: ATORVASTATIN CALCIUM 40MG TABLET PO SCH (21:13)
[2018-07-19] VITALS: BP 91/55
[2018-07-19] MEDS: BLOOD SUGAR DIAGNOSTIC STRIP TEST SCH ×4 (00:28→17:46)
[2018-07-19] MEDS: IPRATROPIUM/ALBUTEROL 0.5-3(2.5)MG/3ML NEB HHN SCH ×6 (01:53→20:59)
[2018-07-19 04:00] VITALS: BP 107/65
[2018-07-19] MEDS: DIPHENHYDRAMINE 50MG/ML VIAL IV PRN (04:40)
[2018-07-19] MEDS: ACETAMINOPHEN 325MG TABLET PO PRN (04:48)
[2018-07-19] MEDS: DEXT 5%/0.45% NACL 1000ML 1,000 ML IV SCH (04:58)
[2018-07-19] MEDS: INSULIN LISPRO 100 UNITS/ML SUBCUT SCH ×4 (06:00→17:46)
[2018-07-19 07:05] LABS: EOSINOPHILS % 6.8 % (0.0-5.0); HEMATOCRIT. 36.2 % (42.0-52.0); HEMOGLOBIN. 12.2 g/dL (14.0-18.0); LYMPHOCYTES % 28.2 % (20.0-50.0); MEAN CORPUSCULAR VOLUME 86.4 fL (80.0-94.0); MEAN PLATELET VOLUME 8.7 fl (7.4-10.4); MONOCYTES % 9.8 % (2.0-8.0); NEUTROPHILS % 54.2 % (40.0-76.0); PLATELET 159 x1000/uL (130-400); RED BLOOD CELL COUNT 4.19 mill/uL (4.7-6.1); RED CELL DISTRIBUTION WIDTH 14.6 % (11.6-14.6)
[2018-07-19 07:39] LABS: CHLORIDE 97 mEq/L (98-107)
[2018-07-19 08:00] VITALS: BP 138/79
[2018-07-19] MEDS: FUROSEMIDE 40MG/4ML VIAL IV SCH ×2 (08:51→16:34)
[2018-07-19] MEDS: ASPIRIN 81MG TABLET PO SCH (08:51)
[2018-07-19 12:00] VITALS: BP 94/58
[2018-07-19 16:00] VITALS: BP 105/76
[2018-07-19] MEDS: ENOXAPARIN 40MG/0.4ML SYR SUBCUT SCH (16:34)
[2018-07-19 20:00] VITALS: BP 107/65
[2018-07-19] MEDS: ATORVASTATIN CALCIUM 40MG TABLET PO SCH (20:04)
[2018-07-19] MEDS: TAMSULOSIN HCL 0.4MG SR CAPSULE PO SCH (20:04)
[2018-07-20] VITALS: BP 102/67
[2018-07-20] MEDS: IPRATROPIUM/ALBUTEROL 0.5-3(2.5)MG/3ML NEB HHN SCH ×6 (00:18→20:35)
[2018-07-20 04:00] VITALS: BP 107/63
[2018-07-20] MEDS: DIPHENHYDRAMINE 50MG/ML VIAL IV PRN ×2 (04:34→11:46)
[2018-07-20] MEDS: INSULIN LISPRO 100 UNITS/ML SUBCUT SCH ×4 (06:00→18:00)
[2018-07-20] MEDS: BLOOD SUGAR DIAGNOSTIC STRIP TEST SCH ×4 (06:43→18:27)
[2018-07-20 08:00] VITALS: BP 99/62
[2018-07-20] MEDS: ASPIRIN 81MG TABLET PO SCH (08:41)
[2018-07-20] MEDS: FUROSEMIDE 40MG/4ML VIAL IV SCH ×2 (08:41→18:04)
[2018-07-20] MEDS: DEXT 5%/0.45% NACL 1000ML 1,000 ML IV SCH (09:59)
[2018-07-20] MEDS: ACETAMINOPHEN 325MG TABLET PO PRN (11:24)
[2018-07-20 12:59] VITALS: BP 99/49
[2018-07-20 17:01] VITALS: BP 102/66
[2018-07-20] MEDS: ENOXAPARIN 40MG/0.4ML SYR SUBCUT SCH (18:03)
[2018-07-20 20:00] VITALS: BP 110/45
[2018-07-20] MEDS: TAMSULOSIN HCL 0.4MG SR CAPSULE PO SCH (21:36)
[2018-07-20] MEDS: ATORVASTATIN CALCIUM 40MG TABLET PO SCH (21:36)
[2018-07-20] MEDS: HYDROCODONE/ACETAMINOPHEN 5/325MG TABLET PO PRN (22:29)
[2018-07-21] VITALS: BP 94/47
[2018-07-21] MEDS: IPRATROPIUM/ALBUTEROL 0.5-3(2.5)MG/3ML NEB HHN SCH ×6 (00:53→21:28)
[2018-07-21] MEDS: DIPHENHYDRAMINE 50MG/ML VIAL IV PRN ×2 (01:18→21:16)
[2018-07-21 04:00] VITALS: BP 96/53
[2018-07-21] MEDS: BLOOD SUGAR DIAGNOSTIC STRIP TEST SCH ×4 (05:52→18:00)
[2018-07-21] MEDS: INSULIN LISPRO 100 UNITS/ML SUBCUT SCH ×4 (05:52→18:00)
[2018-07-21 08:00] VITALS: BP 124/62
[2018-07-21] MEDS: ASPIRIN 81MG TABLET PO SCH (09:17)
[2018-07-21] MEDS: FUROSEMIDE 40MG/4ML VIAL IV SCH ×2 (09:17→18:06)
[2018-07-21] MEDS: DEXT 5%/0.45% NACL 1000ML 1,000 ML IV SCH (09:18)
[2018-07-21] MEDS: ACETAMINOPHEN 325MG TABLET PO PRN ×2 (11:34→12:22)
[2018-07-21 12:00] VITALS: BP 92/58
[2018-07-21] MEDS: HYDROCODONE/ACETAMINOPHEN 5/325MG TABLET PO PRN ×2 (15:12→21:02)
[2018-07-21 16:00] VITALS: BP 110/66
[2018-07-21] MEDS: ENOXAPARIN 40MG/0.4ML SYR SUBCUT SCH (18:07)
[2018-07-21 20:00] VITALS: BP 90/54
[2018-07-21] MEDS: ATORVASTATIN CALCIUM 40MG TABLET PO SCH (21:01)
[2018-07-21] MEDS: TAMSULOSIN HCL 0.4MG SR CAPSULE PO SCH (21:01)
[2018-07-22] VITALS: BP 113/76
[2018-07-22] MEDS: DEXT 5%/0.45% NACL 1000ML 1,000 ML IV SCH (00:58)
[2018-07-22] MEDS: IPRATROPIUM/ALBUTEROL 0.5-3(2.5)MG/3ML NEB HHN SCH ×5 (02:14→13:56)
[2018-07-22] MEDS: HYDROCODONE/ACETAMINOPHEN 5/325MG TABLET PO PRN (02:46)
[2018-07-22] MEDS: DIPHENHYDRAMINE 50MG/ML VIAL IV PRN ×2 (02:52→08:28)
[2018-07-22 04:00] VITALS: BP 103/66
[2018-07-22] MEDS: BLOOD SUGAR DIAGNOSTIC STRIP TEST SCH ×4 (05:20→18:00)
[2018-07-22] MEDS: INSULIN LISPRO 100 UNITS/ML SUBCUT SCH ×4 (05:20→18:00)
[2018-07-22 08:00] VITALS: BP 98/67
[2018-07-22] MEDS: FUROSEMIDE 40MG/4ML VIAL IV SCH ×2 (08:28→16:47)
[2018-07-22] MEDS: ASPIRIN 81MG TABLET PO SCH (08:28)
[2018-07-22 12:00] VITALS: BP 113/68
[2018-07-22 13:42] VITALS: BP 113/68
[2018-07-22 16:00] VITALS: BP 99/65
[2018-07-22] MEDS: ENOXAPARIN 40MG/0.4ML SYR SUBCUT SCH (16:00)
[2018-07-22] MEDS: ACETAMINOPHEN 325MG TABLET PO PRN (16:40)
== END 2018-07-22 18:30 | disposition home or self-care (01) | DRG 720 ==
LOC: ER 04:34 → MICUSO 06:04 → EDBEDREQSVC 06:10 → EDBEDREQTM 06:10 → EDBEDREQ 06:10 → ENRESERV 12:29 → 7WST 07-17 12:02
PROVIDERS: ADMIT Internal Medicine; ATTEND Internal Medicine
PROC: 5A1955Z Respiratory Ventilation, Greater than 96 Consecutive Hours (ICD-10-PCS; principal; 2018-07-08)
PROC: 0BH17EZ Insertion of Endotracheal Airway into Trachea, Via Natural or Artificial Opening (ICD-10-PCS; 2018-07-08)
PROC: 02HV33Z Insertion of Infusion Device into Superior Vena Cava, Percutaneous Approach (ICD-10-PCS; 2018-07-09)
DX: A41.9 Sepsis, unspecified organism (principal); J96.00 Acute respiratory failure, unspecified whether with hypoxia or hypercapnia; J69.0 Pneumonitis due to inhalation of food and vomit; G93.41 Metabolic encephalopathy; I50.23 Acute on chronic systolic (congestive) heart failure; E87.3 Alkalosis; E46 Unspecified protein-calorie malnutrition; I42.9 Cardiomyopathy, unspecified; E11.9 Type 2 diabetes mellitus without complications; I48.91 Unspecified atrial fibrillation; E87.6 Hypokalemia; G40.909 Epilepsy, unspecified, not intractable, without status epilepticus; I11.0 Hypertensive heart disease with heart failure; I25.10 Atherosclerotic heart disease of native coronary artery without angina pectoris; I50.43 Acute on chronic combined systolic (congestive) and diastolic (congestive) heart failure; E78.5 Hyperlipidemia, unspecified
CPT/HCPCS: 31500; 36415; 36569; 36600; 71045; 71250; 71275; 76700; 76937; 78580; 80048; 80061; 80202; 82375; 82805; 82962; 83605; 83735; 83880; 84439; 84443; 84478; 84484; 92610; 93005; 93970; 94003; 94640; 96365; 96375; 97162; 97168; 97530; 99291; A6261; C1725; C1893; C9113; J1200; J1650; J1815; J1940; J1956; J2270; J2405; J2543; J2704; J2930; J3370; J3480; J3490; J7030; J7042; J7050; J7060; J7620; P9047; Q9967; A4315

== ENCOUNTER 2019-02-15 21:35 | Inpatient (IN) | payer MEDICAID ==
[~2019-02-15] VITALS: Ht 165.1 cm; Wt 63.0 kg
[2019-02-15] MEDS ORDERED: MIDAZOLAM HCL 50 MG in DEXTROSE 5% WATER 40 ML IV ONE (22:00)
[2019-02-15] MEDS ORDERED: PIPERACILLIN/TAZ 3.375G PREMIX 50 ML IV ONE (22:00)
[2019-02-15] MEDS ORDERED: VANCOMYCIN 1 G PREMIX 200 ML IV ONE (22:00)
[2019-02-15] MEDS ORDERED: LORAZEPAM 2MG/ML CPJ ONE (22:22)
[2019-02-15] MEDS ORDERED: MIDAZOLAM HCL 50 MG in DEXTROSE 5% WATER 40 ML IV SCH (22:30)
[2019-02-15] MEDS ORDERED: LORAZEPAM 2MG/ML CPJ IV ONE (22:30)
[2019-02-15 22:33] LABS: BASOPHILS % 1.1 % (0.0-2.0); EOSINOPHILS % 10.8 % (0.0-5.0); HEMATOCRIT. 46.6 % (42.0-52.0); HEMOGLOBIN. 15.4 g/dL (14.0-18.0); LYMPHOCYTES % 35.5 % (20.0-50.0); MEAN CORPUSCULAR HEMOGLOBIN 28.9 pg (28.0-32.0); MEAN CORPUSCULAR VOLUME 87.5 fL (80.0-94.0); MEAN PLATELET VOLUME 8.8 fl (7.4-10.4); MONOCYTES % 7.5 % (2.0-8.0); NEUTROPHILS % 45.1 % (40.0-76.0); PLATELET 231 x1000/uL (130-400); RED BLOOD CELL COUNT 5.33 mill/uL (4.7-6.1); RED CELL DISTRIBUTION WIDTH 16.1 % (11.6-14.6)
[2019-02-15 22:39] LABS: CHLORIDE 104 mEq/L (98-107); PROTHROMBIN TIME 10.7 sec (9.6-11.0)
[2019-02-15 22:52] LABS: BG BASE EXCESS -0.2 mmol/L (-2.0-2.0); BG CARBOXYHEMOGLOBIN 0.9 % (0.5-1.5); BG DEOXYHEMOGLOBIN 1.4 % (0.0-5.0); BG FRACTION INSPIRED OXYGEN 40; BG HCO3 ACT 25.5 mmol/L (22.0-26.0); BG METHEMOGLOBIN 0.4 % (0.0-1.5); BG OXYGEN SATURATION 98.6 % (92.0-98.5); BG OXYHEMOGLOBIN 97.3 % (94.0-97.0); BG PCO2 45.6 mmHg (35.0-45.0); BG PH 7.366 (7.350-7.450); BG PO2 136.4 mmHg (75.0-100.0); BG SAMPLE SITE LEFT FEMORAL; BG TIDAL VOLUME(mL) 500 mL; BG TOTAL HEMOGLOBIN 14.6 g/dL (12.0-18.0); BG VENT MODE VENT - A/C; BG VENT RATE 16 set
[2019-02-15] MEDS ORDERED: SODIUM CHLORIDE 0.9% 1,000 ML IV ONE ×2 (23:15)
[2019-02-15 23:34] LABS: CLARITY URINE CLEAR (CLEAR); COLOR URINE YELLOW (YELLOW); KETONES URINE NEGATIVE (NEGATIVE); LEUKOCYTE ESTERASE URINE NEGATIVE (NEGATIVE); NITRITE URINE NEGATIVE (NEGATIVE); OCCULT BLOOD URINE NEGATIVE (NEGATIVE); PROTEIN URINE 1+ (NEGATIVE); SPECIFIC GRAVITY URINE 1.009 (1.005-1.030); UROBILINOGEN URINE 0.2 E.U./dL (0.2-1.0)
[2019-02-16] VITALS (87 sets, daily range): BP systolic 77–137; BP diastolic 39–93
[2019-02-16] MEDS ORDERED: IPRATROPIUM/ALBUTEROL 0.5-3(2.5)MG/3ML NEB HHN PRN ×2 (03:45→11:30)
[2019-02-16] MEDS ORDERED: ACETAMINOPHEN 325MG TABLET PO PRN (03:45)
[2019-02-16] MEDS: IPRATROPIUM/ALBUTEROL 0.5-3(2.5)MG/3ML NEB HHN SCH ×5 (04:20→20:05)
[2019-02-16] MEDS: MIDAZOLAM HCL 50 MG in DEXTROSE 5% WATER 40 ML IV PRN (04:22)
[2019-02-16 05:10] LABS: BASOPHILS % 0.3 % (0.0-2.0); EOSINOPHILS % 2.1 % (0.0-5.0); HEMATOCRIT. 43.6 % (42.0-52.0); HEMOGLOBIN. 14.4 g/dL (14.0-18.0); LYMPHOCYTES % 10.8 % (20.0-50.0); MEAN CORPUSCULAR HEMOGLOBIN 29.2 pg (28.0-32.0); MEAN CORPUSCULAR VOLUME 88.4 fL (80.0-94.0); MEAN PLATELET VOLUME 8.4 fl (7.4-10.4); MONOCYTES % 13.6 % (2.0-8.0); NEUTROPHILS % 73.2 % (40.0-76.0); PLATELET 153 x1000/uL (130-400); RED BLOOD CELL COUNT 4.93 mill/uL (4.7-6.1); RED CELL DISTRIBUTION WIDTH 16.3 % (11.6-14.6)
[2019-02-16 05:14] LABS: CHLORIDE 108 mEq/L (98-107)
[2019-02-16 07:36] LABS: BG BASE EXCESS 1.5 mmol/L (-2.0-2.0); BG CARBOXYHEMOGLOBIN 0.6 % (0.5-1.5); BG DEOXYHEMOGLOBIN 1.5 % (0.0-5.0); BG HCO3 ACT 26.1 mmol/L (22.0-26.0); BG METHEMOGLOBIN 0.2 % (0.0-1.5); BG OXYGEN SATURATION 98.5 % (92.0-98.5); BG OXYHEMOGLOBIN 97.7 % (94.0-97.0); BG PH 7.421 (7.350-7.450); BG PO2 128.9 mmHg (75.0-100.0); BG SAMPLE SITE LEFT BRACHIAL; BG TIDAL VOLUME(mL) 500 mL; BG TOTAL HEMOGLOBIN 14.2 g/dL (12.0-18.0); BG VENT MODE VENT - A/C; BG VENT RATE 16 set
[2019-02-16] MEDS ORDERED: CLONIDINE 0.1MG TABLET PO PRN (07:45)
[2019-02-16] MEDS ORDERED: MAGNESIUM/ALUMINUM HYDROXIDE/SIMETHICONE 30ML UDC PO PRN (07:45)
[2019-02-16] MEDS ORDERED: ONDANSETRON HCL 4MG/2ML INJ IV PRN (07:45)
[2019-02-16] MEDS ORDERED: DOCUSATE SODIUM 100MG CAPSULE PO PRN (07:45)
[2019-02-16] MEDS: FUROSEMIDE 100MG/10ML VIAL IVP SCH ×2 (07:45→20:10)
[2019-02-16] MEDS ORDERED: PANTOPRAZOLE SODIUM 40 MG/VIAL IV SCH (09:00)
[2019-02-16] MEDS: METHYLPREDNISOLONE SOD SUCC 125 MG/2 ML VIAL IV SCH ×3 (10:06→21:59)
[2019-02-16] MEDS: SPIRONOLACTONE 25MG TABLET PO SCH ×2 (10:07→18:00)
[2019-02-16] MEDS: LEVOFLOXACIN 500MG PREMIX 100 ML IV SCH (10:08)
[2019-02-16] MEDS: ASPIRIN 325MG EC TABLET PO SCH (10:08)
[2019-02-16] MEDS: ENOXAPARIN 40MG/0.4ML SYR SUBCUT SCH (10:11)
[2019-02-16] MEDS ORDERED: NOREPINEPHRINE 16 MG in DEXT 5% WATER 234 ML IV PRN (11:30)
[2019-02-16] MEDS: LORATADINE 10MG TABLET PO SCH (12:58)
[2019-02-16 16:16] LABS: LDL CHOLESTEROL 66 mg/dL (5-100)
[2019-02-16 16:19] LABS: CREATINE KINASE 214 IU/L (39-308); CREATINE KINASE MB FRACTION 1.7 ng/mL (0.5-3.6); HDL CHOLESTEROL 51 mg/dL (40-59)
[2019-02-16] MEDS ORDERED: IOHEXOL-350 100 ML BOTTLE ONE (19:45)
[2019-02-16] MEDS ORDERED: FAMOTIDINE 20MG/2ML VIAL IV SCH (21:00)
[2019-02-16 23:33] LABS: CREATINE KINASE 199 IU/L (39-308); CREATINE KINASE MB FRACTION 2.4 ng/mL (0.5-3.6)
[2019-02-17] VITALS (96 sets, daily range): BP systolic 81–129; BP diastolic 45–80
[2019-02-17] MEDS: IPRATROPIUM/ALBUTEROL 0.5-3(2.5)MG/3ML NEB HHN SCH ×6 (00:14→20:31)
[2019-02-17] MEDS: MIDAZOLAM HCL 50 MG in DEXTROSE 5% WATER 40 ML IV PRN (02:49)
[2019-02-17 05:11] LABS: BASOPHILS % 0.1 % (0.0-2.0); HEMATOCRIT. 45.3 % (42.0-52.0); HEMOGLOBIN. 15.1 g/dL (14.0-18.0); LYMPHOCYTES % 7.4 % (20.0-50.0); MEAN CORPUSCULAR HEMOGLOBIN 29.2 pg (28.0-32.0); MEAN CORPUSCULAR VOLUME 87.9 fL (80.0-94.0); MONOCYTES % 3.5 % (2.0-8.0); PLATELET 83 x1000/uL (130-400); RED BLOOD CELL COUNT 5.16 mill/uL (4.7-6.1); RED CELL DISTRIBUTION WIDTH 15.9 % (11.6-14.6)
[2019-02-17 05:12] LABS: CHLORIDE 106 mEq/L (98-107)
[2019-02-17 05:17] LABS: PHOSPHORUS 1.7 mg/dL (2.5-4.9)
[2019-02-17 05:21] LABS: CREATINE KINASE 209 IU/L (39-308); CREATINE KINASE MB FRACTION 2.1 ng/mL (0.5-3.6)
[2019-02-17] MEDS: FUROSEMIDE 100MG/10ML VIAL IVP SCH ×2 (06:05→20:05)
[2019-02-17] MEDS: METHYLPREDNISOLONE SOD SUCC 125 MG/2 ML VIAL IV SCH (06:05)
[2019-02-17] MEDS: SPIRONOLACTONE 25MG TABLET PO SCH ×2 (06:11→17:47)
[2019-02-17] MEDS: ASPIRIN 325MG EC TABLET PO SCH (08:23)
[2019-02-17] MEDS: LORATADINE 10MG TABLET PO SCH (08:23)
[2019-02-17 10:05] LABS: BG CARBOXYHEMOGLOBIN 0.9 % (0.5-1.5); BG DEOXYHEMOGLOBIN 0.8 % (0.0-5.0); BG FRACTION INSPIRED OXYGEN 40; BG HCO3 ACT 24.7 mmol/L (22.0-26.0); BG METHEMOGLOBIN 0.3 % (0.0-1.5); BG OXYGEN SATURATION 99.2 % (92.0-98.5); BG PCO2 29.9 mmHg (35.0-45.0); BG PH 7.535 (7.350-7.450); BG PO2 170.3 mmHg (75.0-100.0); BG SAMPLE SITE RIGHT RADIAL; BG TIDAL VOLUME(mL) 500 mL; BG TOTAL HEMOGLOBIN 14.8 g/dL (12.0-18.0); BG VENT MODE VENT - A/C; BG VENT RATE 16 set
[2019-02-17] MEDS: ENOXAPARIN 40MG/0.4ML SYR SUBCUT SCH (10:53)
[2019-02-17] MEDS: FAMOTIDINE 20MG/2ML VIAL IV SCH (10:58)
[2019-02-17] MEDS: LEVOFLOXACIN 500MG PREMIX 100 ML IV SCH (11:04)
[2019-02-17 12:41] LABS: BG BASE EXCESS 3.4 mmol/L (-2.0-2.0); BG CARBOXYHEMOGLOBIN 0.7 % (0.5-1.5); BG FRACTION INSPIRED OXYGEN 40; BG HCO3 ACT 27.6 mmol/L (22.0-26.0); BG METHEMOGLOBIN 0.4 % (0.0-1.5); BG OXYHEMOGLOBIN 97.9 % (94.0-97.0); BG PCO2 40.3 mmHg (35.0-45.0); BG PH 7.453 (7.350-7.450); BG PO2 147.7 mmHg (75.0-100.0); BG PRESSURE SUPPORT 8; BG SAMPLE SITE RIGHT RADIAL; BG TOTAL HEMOGLOBIN 15.1 g/dL (12.0-18.0); BG VENT MODE VENT - CPAP
[2019-02-17] MEDS: METHYLPREDNISOLONE SOD SUCC 40 MG/ML VIAL IV SCH ×2 (13:29→21:39)
[2019-02-17 15:12] LABS: CREATINE KINASE 324 IU/L (39-308)
[2019-02-17 15:13] LABS: CREATINE KINASE MB FRACTION 4.2 ng/mL (0.5-3.6)
[2019-02-18] VITALS (84 sets, daily range): BP systolic 79–138; BP diastolic 42–97
[2019-02-18] MEDS: IPRATROPIUM/ALBUTEROL 0.5-3(2.5)MG/3ML NEB HHN SCH ×6 (00:28→20:30)
[2019-02-18] MEDS: FUROSEMIDE 100MG/10ML VIAL IVP SCH ×2 (05:27→19:56)
[2019-02-18] MEDS: METHYLPREDNISOLONE SOD SUCC 40 MG/ML VIAL IV SCH ×3 (05:27→21:48)
[2019-02-18] MEDS: SPIRONOLACTONE 25MG TABLET PO SCH ×2 (05:27→19:00)
[2019-02-18] MEDS: ASPIRIN 325MG EC TABLET PO SCH (08:26)
[2019-02-18] MEDS: FAMOTIDINE 20MG/2ML VIAL IV SCH (08:26)
[2019-02-18] MEDS: LEVOFLOXACIN 500MG PREMIX 100 ML IV SCH (08:26)
[2019-02-18] MEDS: LORATADINE 10MG TABLET PO SCH (08:26)
[2019-02-18] MEDS: ACETAMINOPHEN 325MG TABLET PO PRN (12:44)
[2019-02-18] MEDS: GUAIFENESIN 200MG/10ML SUGAR FREE UDC PO PRN (20:14)
[2019-02-19] VITALS (27 sets, daily range): BP systolic 85–114; BP diastolic 51–88
[2019-02-19] MEDS: IPRATROPIUM/ALBUTEROL 0.5-3(2.5)MG/3ML NEB HHN SCH ×5 (01:00→20:03)
[2019-02-19] MEDS: ACETAMINOPHEN 325MG TABLET PO PRN ×2 (02:06→18:12)
[2019-02-19] MEDS: GUAIFENESIN 200MG/10ML SUGAR FREE UDC PO PRN ×2 (04:29→11:45)
[2019-02-19] MEDS: METHYLPREDNISOLONE SOD SUCC 40 MG/ML VIAL IV SCH ×3 (05:03→20:38)
[2019-02-19] MEDS: SPIRONOLACTONE 25MG TABLET PO SCH ×2 (05:04→18:04)
[2019-02-19] MEDS: LORATADINE 10MG TABLET PO SCH (09:00)
[2019-02-19] MEDS: ASPIRIN 325MG EC TABLET PO SCH (09:00)
[2019-02-19] MEDS: LEVOFLOXACIN 500MG PREMIX 100 ML IV SCH (09:00)
[2019-02-19] MEDS: FUROSEMIDE 100MG/10ML VIAL IVP SCH ×2 (09:00→20:38)
[2019-02-19] MEDS: FAMOTIDINE 20MG/2ML VIAL IV SCH (09:00)
[2019-02-19] MEDS: MONTELUKAST SODIUM 10MG TABLET PO SCH (18:04)
[2019-02-20] VITALS (7 sets, daily range): BP systolic 99–140; BP diastolic 32–79
[2019-02-20] MEDS: IPRATROPIUM/ALBUTEROL 0.5-3(2.5)MG/3ML NEB HHN SCH ×6 (00:28→21:13)
[2019-02-20] MEDS: METHYLPREDNISOLONE SOD SUCC 40 MG/ML VIAL IV SCH ×3 (05:37→21:38)
[2019-02-20] MEDS: ACETAMINOPHEN 325MG TABLET PO PRN ×3 (05:38→21:38)
[2019-02-20] MEDS: SPIRONOLACTONE 25MG TABLET PO SCH ×2 (05:38→16:49)
[2019-02-20] MEDS: ASPIRIN 325MG EC TABLET PO SCH (08:39)
[2019-02-20] MEDS: LORATADINE 10MG TABLET PO SCH (08:39)
[2019-02-20] MEDS: MEROPENEM 1,000 MG in SODIUM CHLORIDE 0.9% 100 ML IV SCH ×2 (11:11→17:50)
[2019-02-20] MEDS: FAMOTIDINE 20MG/2ML VIAL IV SCH (11:11)
[2019-02-20 16:27] LABS: HEMATOCRIT. 42.8 % (42.0-52.0); HEMOGLOBIN. 14.3 g/dL (14.0-18.0); LYMPHOCYTES % 8.4 % (20.0-50.0); MEAN CORPUSCULAR HEMOGLOBIN 28.6 pg (28.0-32.0); MEAN CORPUSCULAR VOLUME 85.6 fL (80.0-94.0); NEUTROPHILS % 80.6 % (40.0-76.0); PLATELET 165 x1000/uL (130-400)
[2019-02-20 16:35] LABS: CHLORIDE 99 mEq/L (98-107)
[2019-02-20 16:43] LABS: PHOSPHORUS 2.3 mg/dL (2.5-4.9)
[2019-02-20] MEDS: MONTELUKAST SODIUM 10MG TABLET PO SCH (16:49)
[2019-02-21] VITALS: BP 106/57
[2019-02-21] MEDS: IPRATROPIUM/ALBUTEROL 0.5-3(2.5)MG/3ML NEB HHN SCH ×6 (00:15→20:56)
[2019-02-21] MEDS: MEROPENEM 1,000 MG in SODIUM CHLORIDE 0.9% 100 ML IV SCH ×3 (02:22→17:47)
[2019-02-21 04:00] VITALS: BP 111/74
[2019-02-21] MEDS: SPIRONOLACTONE 25MG TABLET PO SCH ×2 (06:00→17:45)
[2019-02-21] MEDS: LORATADINE 10MG TABLET PO SCH (10:52)
[2019-02-21] MEDS: FAMOTIDINE 20MG/2ML VIAL IV SCH (10:54)
[2019-02-21] MEDS: METHYLPREDNISOLONE SOD SUCC 40 MG/ML VIAL IV SCH ×2 (10:54→20:55)
[2019-02-21] MEDS: FUROSEMIDE 40MG/4ML VIAL IVP SCH (10:56)
[2019-02-21] MEDS: ASPIRIN 81MG EC TABLET PO SCH (11:00)
[2019-02-21] MEDS: CARVEDILOL 3.125 MG TABLET PO SCH ×2 (11:14→20:55)
[2019-02-21] MEDS: LISINOPRIL 10MG TABLET PO SCH (11:14)
[2019-02-21 12:00] VITALS: BP 111/73
[2019-02-21] MEDS: MONTELUKAST SODIUM 10MG TABLET PO SCH (17:00)
[2019-02-21 20:00] VITALS: BP 107/69
[2019-02-21] MEDS: ATORVASTATIN CALCIUM 40MG TABLET PO SCH (20:55)
[2019-02-22 00:05] VITALS: BP 117/64
[2019-02-22] MEDS: IPRATROPIUM/ALBUTEROL 0.5-3(2.5)MG/3ML NEB HHN SCH ×7 (01:05→23:56)
[2019-02-22] MEDS: MEROPENEM 1,000 MG in SODIUM CHLORIDE 0.9% 100 ML IV SCH ×3 (01:58→18:27)
[2019-02-22 04:00] VITALS: BP 113/74
[2019-02-22] MEDS: SPIRONOLACTONE 25MG TABLET PO SCH ×2 (05:45→18:00)
[2019-02-22 08:00] VITALS: BP 124/87
[2019-02-22] MEDS: METHYLPREDNISOLONE SOD SUCC 40 MG/ML VIAL IV SCH (10:13)
[2019-02-22] MEDS: FUROSEMIDE 40MG/4ML VIAL IVP SCH (10:13)
[2019-02-22] MEDS: LISINOPRIL 10MG TABLET PO SCH (10:13)
[2019-02-22] MEDS: CARVEDILOL 3.125 MG TABLET PO SCH ×2 (10:14→21:00)
[2019-02-22] MEDS: LORATADINE 10MG TABLET PO SCH (10:14)
[2019-02-22] MEDS: ASPIRIN 81MG EC TABLET PO SCH (10:14)
[2019-02-22] MEDS: FAMOTIDINE 20MG/2ML VIAL IV SCH (10:15)
[2019-02-22 12:00] VITALS: BP 111/79
[2019-02-22 16:00] VITALS: BP 99/66
[2019-02-22] MEDS: MONTELUKAST SODIUM 10MG TABLET PO SCH (18:27)
[2019-02-22 20:00] VITALS: BP 109/67
[2019-02-22] MEDS: ATORVASTATIN CALCIUM 40MG TABLET PO SCH ×2 (21:00→21:17)
[2019-02-23] VITALS: BP 138/44
[2019-02-23] MEDS: MEROPENEM 1,000 MG in SODIUM CHLORIDE 0.9% 100 ML IV SCH ×3 (02:00→18:00)
[2019-02-23] MEDS: IPRATROPIUM/ALBUTEROL 0.5-3(2.5)MG/3ML NEB HHN SCH ×3 (03:59→12:50)
[2019-02-23 04:00] VITALS: BP 114/81
[2019-02-23] MEDS: SPIRONOLACTONE 25MG TABLET PO SCH ×2 (06:08→18:00)
[2019-02-23] MEDS: ACETAMINOPHEN 325MG TABLET PO PRN ×3 (06:08→18:41)
[2019-02-23 08:00] VITALS: BP 90/57
[2019-02-23] MEDS ORDERED: PREDNISONE 20MG TABLET PO SCH (09:00)
[2019-02-23] MEDS: LISINOPRIL 10MG TABLET PO SCH (09:00)
[2019-02-23] MEDS: CARVEDILOL 3.125 MG TABLET PO SCH (09:00)
[2019-02-23] MEDS: ASPIRIN 81MG EC TABLET PO SCH (10:32)
[2019-02-23] MEDS: LORATADINE 10MG TABLET PO SCH (10:32)
[2019-02-23] MEDS: FUROSEMIDE 40MG/4ML VIAL IVP SCH (10:41)
[2019-02-23] MEDS: FAMOTIDINE 20MG/2ML VIAL IV SCH (10:41)
[2019-02-23 12:00] VITALS: BP 95/71
[2019-02-23 12:28] LABS: HEMATOCRIT. 44.5 % (42.0-52.0); HEMOGLOBIN. 14.8 g/dL (14.0-18.0); MEAN CORPUSCULAR HEMOGLOBIN 28.9 pg (28.0-32.0); MEAN PLATELET VOLUME 8.4 fl (7.4-10.4); PLATELET 179 x1000/uL (130-400); RED BLOOD CELL COUNT 5.12 mill/uL (4.7-6.1); RED CELL DISTRIBUTION WIDTH 16.3 % (11.6-14.6)
[2019-02-23 12:37] LABS: CHLORIDE 101 mEq/L (98-107)
[2019-02-23] MEDS ORDERED: POTASSIUM CHLORIDE 20MEQ/PACKET PO NR (14:00)
[2019-02-23 14:28] LABS: PLATELET ESTIMATE NORMAL
[2019-02-23 16:00] VITALS: BP 110/60
[2019-02-23] MEDS ORDERED: IPRATROPIUM BROMIDE (0.02%) 0.5MG/2.5ML NEB HHN SCH (18:00)
[2019-02-23] MEDS: MONTELUKAST SODIUM 10MG TABLET PO SCH (18:40)
[2019-02-23 19:35] VITALS: BP 110/60
[2019-02-24] MEDS ORDERED: PREDNISONE 20MG TABLET PO SCH (09:00)
== END 2019-02-23 20:45 | DRG 720 ==
LOC: ER 21:35 → MICUSO 23:42 → EDBEDREQSVC 23:46 → EDBEDREQ 23:46 → EDBEDREQTM 23:46 → ENRESERV 23:55 → MICUSO 02-16 08:23 → 7WST 02-19 11:34
PROVIDERS: ADMIT Internal Medicine; ATTEND Internal Medicine
PROC: 0BH17EZ Insertion of Endotracheal Airway into Trachea, Via Natural or Artificial Opening (ICD-10-PCS; principal; 2019-02-15)
PROC: 5A1945Z Respiratory Ventilation, 24-96 Consecutive Hours (ICD-10-PCS; 2019-02-15)
DX: A41.59 Other Gram-negative sepsis (principal); J96.00 Acute respiratory failure, unspecified whether with hypoxia or hypercapnia; I50.43 Acute on chronic combined systolic (congestive) and diastolic (congestive) heart failure; G92 Toxic encephalopathy; J18.9 Pneumonia, unspecified organism; E46 Unspecified protein-calorie malnutrition; I11.0 Hypertensive heart disease with heart failure; I42.9 Cardiomyopathy, unspecified; E11.51 Type 2 diabetes mellitus with diabetic peripheral angiopathy without gangrene; J44.0 Chronic obstructive pulmonary disease with (acute) lower respiratory infection; E83.51 Hypocalcemia; J44.1 Chronic obstructive pulmonary disease with (acute) exacerbation; E87.6 Hypokalemia; G40.909 Epilepsy, unspecified, not intractable, without status epilepticus; H54.8 Legal blindness, as defined in USA; E78.00 Pure hypercholesterolemia, unspecified; E78.5 Hyperlipidemia, unspecified; F03.90 Unspecified dementia, unspecified severity, without behavioral disturbance, psychotic disturbance, mood disturbance, and anxiety; I25.10 Atherosclerotic heart disease of native coronary artery without angina pectoris; I49.3 Ventricular premature depolarization; I34.0 Nonrheumatic mitral (valve) insufficiency; R74.0 Nonspecific elevation of levels of transaminase and lactic acid dehydrogenase [LDH]; Z16.12 Extended spectrum beta lactamase (ESBL) resistance; B96.1 Klebsiella pneumoniae [K. pneumoniae] as the cause of diseases classified elsewhere; Z87.01 Personal history of pneumonia (recurrent); Z79.899 Other long term (current) drug therapy; I25.2 Old myocardial infarction; Z86.73 Personal history of transient ischemic attack (TIA), and cerebral infarction without residual deficits; Z99.81 Dependence on supplemental oxygen; Z68.23 Body mass index [BMI] 23.0-23.9, adult; Z79.82 Long term (current) use of aspirin
CPT/HCPCS: 36415; 36600; 71045; 71275; 80048; 80061; 81003; 82375; 82550; 82553; 82805; 83036; 83605; 83735; 83880; 84100; 84145; 84484; 87070; 87077; 87186; 87804; 92610; 93005; 93306; 93970; 94002; 94003; 94640; 99291; C9113; J1650; J1940; J1956; J2060; J2185; J2250; J2543; J2920; J2930; J3370; J3490; J7040; J7050; J7060; J7512; J7620; Q9967

== ENCOUNTER 2019-11-24 21:29 | Inpatient (IN) | payer MEDICAID ==
[~2019-11-24] VITALS: Ht 169.4 cm; Wt 77.3 kg
[~2019-11-24 21:29] MED LIST changes: -LISI2.5T47 PO
[2019-11-24] MEDS ORDERED: VANCOMYCIN 1 G PREMIX 200 ML IV ONE (22:15)
[2019-11-24] MEDS ORDERED: PIPERACILLIN/TAZOBACTAM 3.375GM/50ML PREMIX IV ONE (22:15)
[2019-11-24] MEDS ORDERED: SODIUM CHLORIDE 0.9% 1000ML BAG (SEPSIS BOLUS) IV ONE (22:15)
[2019-11-24] MEDS ORDERED: PIPERACILLIN/TAZ 3.375G PREMIX 50 ML IV NR (22:30)
[2019-11-24 23:55] LABS: BASOPHILS % 0.3 % (0.0-2.0); EOSINOPHILS % 0.1 % (0.0-5.0); HEMATOCRIT. 38.6 % (42.0-52.0); HEMOGLOBIN. 12.9 g/dL (14.0-18.0); LYMPHOCYTES % 8.2 % (20.0-50.0); MEAN CORPUSCULAR HEMOGLOBIN 30.1 pg (28.0-32.0); MEAN PLATELET VOLUME 7.2 fl (7.4-10.4); MONOCYTES % 8.9 % (2.0-8.0); NEUTROPHILS % 82.5 % (40.0-76.0); PLATELET 268 x1000/uL (130-400); RED BLOOD CELL COUNT 4.29 mill/uL (4.7-6.1); RED CELL DISTRIBUTION WIDTH 14.4 % (11.6-14.6)
[2019-11-24 23:58] LABS: CHLORIDE 96 mEq/L (98-107)
[2019-11-25 00:01] LABS: D-DIMER 0.63 mg/L FEU (<0.50); INR 1.1; PROTHROMBIN TIME 11.6 sec (9.6-11.0)
[2019-11-25 01:31] LABS: CLARITY URINE TURBID (CLEAR); COLOR URINE ORANGE (YELLOW); KETONES URINE 2+ (NEGATIVE); LEUKOCYTE ESTERASE URINE 3+ (NEGATIVE); NITRITE URINE POSITIVE (NEGATIVE); OCCULT BLOOD URINE 3+ (NEGATIVE); PH URINE 5.5 (4.5-8.0); PROTEIN URINE 2+ (NEGATIVE); SPECIFIC GRAVITY URINE 1.017 (1.005-1.030)
[2019-11-25 01:43] LABS: *AMPHETAMINES SCREEN URINE NEGATIVE (NEGATIVE); *BARBITURATES SCREEN URINE NEGATIVE (NEGATIVE); *BENZODIAZEPINES SCREEN URINE NEGATIVE (NEGATIVE); *COCAINE SCREEN URINE NEGATIVE (NEGATIVE); METHADONE URINE SCREEN NEGATIVE (NEGATIVE); OPIATES URINE SCREEN NEGATIVE (NEGATIVE)
[2019-11-25 01:44] LABS: CANNABINOID URINE SCREEN NEGATIVE (NEGATIVE); PHENCYCLIDINE URINE SCREEN NEGATIVE (NEGATIVE)
[2019-11-25] MEDS ORDERED: IOHEXOL-350 100 ML BOTTLE ONE (02:38)
[2019-11-25] MEDS ORDERED: DOCUSATE SODIUM 100MG CAPSULE PO PRN (07:30)
[2019-11-25] MEDS ORDERED: GUAIFENESIN 200MG/10ML SUGAR FREE UDC PO PRN (07:30)
[2019-11-25] MEDS ORDERED: MAGNESIUM/ALUMINUM HYDROXIDE/SIMETHICONE 30ML UDC PO PRN (07:30)
[2019-11-25] MEDS ORDERED: ONDANSETRON HCL 4MG/2ML INJ IV PRN (07:30)
[2019-11-25] MEDS ORDERED: ACETAMINOPHEN 325MG TABLET PO PRN ×2 (07:30)
[2019-11-25] MEDS ORDERED: CLONIDINE 0.1MG TABLET PO PRN (07:30)
[2019-11-25] MEDS ORDERED: KETOROLAC 15MG/ML VIAL IV PRN (07:30)
[2019-11-25] MEDS ORDERED: NITROGLYCERIN 0.4MG TABLET SL SL PRN (07:30)
[2019-11-25] MEDS: TAMSULOSIN HCL 0.4MG SR CAPSULE PO SCH (09:00)
[2019-11-25] MEDS ORDERED: PIPERACILLIN/TAZ 3.375G PREMIX 50 ML IV SCH (09:00)
[2019-11-25] MEDS ORDERED: VANCOMYCIN 1 G PREMIX 200 ML IV SCH (09:30)
[2019-11-25 09:52] LABS: FOLIC ACID (FOLATE) SERUM 6.9 ng/mL (>5.38)
[2019-11-25 11:30] VITALS: BP 86/45
[2019-11-25] MEDS ORDERED: MINERAL OIL ENEMA 133ML PR NR (16:00)
[2019-11-25] MEDS: LACTULOSE 20G/30ML UDC PO SCH ×2 (16:41→22:31)
[2019-11-25] MEDS: ZINC SULFATE 220 MG ( 50 ) CAPSULE PO SCH (16:41)
[2019-11-25] MEDS: FAMOTIDINE 20MG TABLET PO SCH ×2 (16:45→22:31)
[2019-11-25] MEDS: ASCORBIC ACID 500 MG TABLET PO SCH ×2 (16:45→22:31)
[2019-11-25] MEDS: SODIUM CHLORIDE 0.9% 1,000 ML IV SCH (16:49)
[2019-11-25] MEDS: PIPERACILLIN/TAZOBACTAM 3.375 G in DEXT 5% WATER 100 ML IV SCH ×2 (17:41→22:30)
[2019-11-25] MEDS: VANCOMYCIN 1 G PREMIX 200 ML IV SCH ×2 (17:41→22:30)
[2019-11-25 20:24] VITALS: BP 78/50
[2019-11-25 20:27] LABS: CREATINE KINASE 107 IU/L (39-308)
[2019-11-25] MEDS ORDERED: ZOLPIDEM TARTRATE 5MG TABLET PO PRN (21:00)
[2019-11-25] MEDS: ATORVASTATIN CALCIUM 10MG TABLET PO SCH (22:31)
[2019-11-26] VITALS (7 sets, daily range): BP systolic 81–109; BP diastolic 42–68
[2019-11-26 00:56] LABS: CREATINE KINASE 38 IU/L (39-308)
[2019-11-26 00:57] LABS: CREATINE KINASE MB FRACTION 2.4 ng/mL (0.5-3.6)
[2019-11-26] MEDS: SODIUM CHLORIDE 0.9% 1,000 ML IV SCH (03:57)
[2019-11-26] MEDS: PIPERACILLIN/TAZOBACTAM 3.375 G in DEXT 5% WATER 100 ML IV SCH ×3 (04:33→20:13)
[2019-11-26] MEDS: LACTULOSE 20G/30ML UDC PO SCH ×3 (06:25→21:35)
[2019-11-26 07:57] LABS: CHLORIDE 104 mEq/L (98-107)
[2019-11-26] MEDS: ZINC SULFATE 220 MG ( 50 ) CAPSULE PO SCH (08:14)
[2019-11-26] MEDS: FAMOTIDINE 20MG TABLET PO SCH ×2 (08:14→20:13)
[2019-11-26] MEDS: TAMSULOSIN HCL 0.4MG SR CAPSULE PO SCH (08:14)
[2019-11-26] MEDS: VANCOMYCIN 1 G PREMIX 200 ML IV SCH (08:14)
[2019-11-26] MEDS: ASCORBIC ACID 500 MG TABLET PO SCH ×2 (08:14→20:13)
[2019-11-26] MEDS: VANCOMYCIN 1250MG in DEXTROSE 5% WATER 250ML IV SCH (17:31)
[2019-11-26] MEDS: ATORVASTATIN CALCIUM 10MG TABLET PO SCH (20:13)
[2019-11-27] VITALS (7 sets, daily range): BP systolic 86–101; BP diastolic 51–73
[2019-11-27] MEDS: SODIUM CHLORIDE 0.9% 1,000 ML IV SCH ×2 (04:02→18:34)
[2019-11-27] MEDS: PIPERACILLIN/TAZOBACTAM 3.375 G in DEXT 5% WATER 100 ML IV SCH ×3 (04:02→21:16)
[2019-11-27] MEDS: LACTULOSE 20G/30ML UDC PO SCH ×4 (05:21→21:21)
[2019-11-27] MEDS: VANCOMYCIN 1250MG in DEXTROSE 5% WATER 250ML IV SCH ×2 (05:54→18:31)
[2019-11-27] MEDS: TAMSULOSIN HCL 0.4MG SR CAPSULE PO SCH (08:52)
[2019-11-27] MEDS: ZINC SULFATE 220 MG ( 50 ) CAPSULE PO SCH (08:53)
[2019-11-27] MEDS: FAMOTIDINE 20MG TABLET PO SCH ×2 (08:53→21:15)
[2019-11-27] MEDS: ASCORBIC ACID 500 MG TABLET PO SCH ×2 (08:53→21:15)
[2019-11-27] MEDS: IPRATROPIUM/ALBUTEROL 0.5-3(2.5)MG/3ML NEB ORI PRN (16:02)
[2019-11-27] MEDS: ATORVASTATIN CALCIUM 10MG TABLET PO SCH (21:15)
[2019-11-28] MEDS: IPRATROPIUM/ALBUTEROL 0.5-3(2.5)MG/3ML NEB ORI PRN ×2 (01:38→16:19)
[2019-11-28 04:00] VITALS: BP 106/67
[2019-11-28] MEDS: PIPERACILLIN/TAZOBACTAM 3.375 G in DEXT 5% WATER 100 ML IV SCH ×2 (05:06→11:52)
[2019-11-28] MEDS: LACTULOSE 20G/30ML UDC PO SCH ×2 (06:00→15:07)
[2019-11-28] MEDS: VANCOMYCIN 1250MG in DEXTROSE 5% WATER 250ML IV SCH (06:13)
[2019-11-28 07:14] LABS: BASOPHILS % 0.6 % (0.0-2.0); EOSINOPHILS % 4.8 % (0.0-5.0); HEMATOCRIT. 28.3 % (42.0-52.0); HEMOGLOBIN. 9.5 g/dL (14.0-18.0); LYMPHOCYTES % 8.9 % (20.0-50.0); MEAN CORPUSCULAR HEMOGLOBIN 29.9 pg (28.0-32.0); MEAN CORPUSCULAR VOLUME 89.3 fL (80.0-94.0); MEAN PLATELET VOLUME 6.4 fl (7.4-10.4); MONOCYTES % 10.4 % (2.0-8.0); NEUTROPHILS % 75.3 % (40.0-76.0); PLATELET 188 x1000/uL (130-400); RED BLOOD CELL COUNT 3.17 mill/uL (4.7-6.1); RED CELL DISTRIBUTION WIDTH 14.6 % (11.6-14.6)
[2019-11-28 07:34] LABS: CHLORIDE 103 mEq/L (98-107)
[2019-11-28 08:00] VITALS: BP 108/69
[2019-11-28] MEDS: TAMSULOSIN HCL 0.4MG SR CAPSULE PO SCH (09:00)
[2019-11-28] MEDS: ZINC SULFATE 220 MG ( 50 ) CAPSULE PO SCH (09:02)
[2019-11-28] MEDS: ASCORBIC ACID 500 MG TABLET PO SCH (09:02)
[2019-11-28] MEDS: FAMOTIDINE 20MG TABLET PO SCH (09:02)
[2019-11-28 12:00] VITALS: BP 102/67
[2019-11-28 13:39] VITALS: BP 102/67
[2019-11-28] MEDS: SODIUM CHLORIDE 0.9% 1,000 ML IV SCH (15:07)
== END 2019-11-28 16:30 | DRG 720 ==
LOC: ER 21:29 → 7WST 11-25 01:02 → EDBEDREQSVC 11-25 01:03 → EDBEDREQ 11-25 01:03 → EDBEDREQDT 11-25 01:03 → EDBEDREQTM 11-25 01:03 → ENRESERV 11-25 07:21 → 5WST 11-26 21:23
PROVIDERS: ADMIT Internal Medicine; ATTEND Internal Medicine
DX: A41.9 Sepsis, unspecified organism (principal); B96.20 Unspecified Escherichia coli [E. coli] as the cause of diseases classified elsewhere; G92 Toxic encephalopathy; D63.8 Anemia in other chronic diseases classified elsewhere; E11.9 Type 2 diabetes mellitus without complications; E44.0 Moderate protein-calorie malnutrition; E78.00 Pure hypercholesterolemia, unspecified; E87.1 Hypo-osmolality and hyponatremia; H54.8 Legal blindness, as defined in USA; I11.0 Hypertensive heart disease with heart failure; I50.9 Heart failure, unspecified; J44.9 Chronic obstructive pulmonary disease, unspecified; K56.41 Fecal impaction; N39.0 Urinary tract infection, site not specified; Z20.828 Contact with and (suspected) exposure to other viral communicable diseases; Z86.718 Personal history of other venous thrombosis and embolism; Z68.26 Body mass index [BMI] 26.0-26.9, adult; Z86.73 Personal history of transient ischemic attack (TIA), and cerebral infarction without residual deficits; Z79.01 Long term (current) use of anticoagulants; Z79.82 Long term (current) use of aspirin; Z79.899 Other long term (current) drug therapy
CPT/HCPCS: 36415; 71045; 71275; 74177; 80048; 80053; 80061; 80202; 80305; 81003; 82550; 82553; 82607; 82746; 83036; 83540; 83550; 83605; 83880; 84145; 84484; 85025; 85379; 87077; 87186; 87635; 93005; 93970; 94640; 99291; J1885; J2543; J3370; J7030; J7060; Q9967

== ENCOUNTER 2020-11-03 15:55 | Inpatient (IN) | payer MEDICAID ==
[~2020-11-03] VITALS: Ht 167.6 cm; Wt 56.0 kg
[~2020-11-03 15:55] MED LIST changes: +LISI10TA26 PO; -LISI10TA5 PO
[2020-11-03] MEDS ORDERED: SODIUM CHLORIDE 0.9% 1000ML BAG (SEPSIS BOLUS) IV ONE (16:45)
[2020-11-03 17:40] LABS: BASOPHILS % 0.2 % (0.0-2.0); EOSINOPHILS % 0.7 % (0.0-5.0); HEMATOCRIT. 32.7 % (42.0-52.0); HEMOGLOBIN. 10.8 g/dL (14.0-18.0); MEAN CORPUSCULAR HEMOGLOBIN 25.3 pg (28.0-32.0); MEAN CORPUSCULAR VOLUME 76.2 fL (80.0-94.0); MEAN PLATELET VOLUME 7.4 fl (7.4-10.4); MONOCYTES % 7.2 % (2.0-8.0); NEUTROPHILS % 82.9 % (40.0-76.0); PLATELET 295 x1000/uL (130-400); RED BLOOD CELL COUNT 4.29 mill/uL (4.7-6.1); RED CELL DISTRIBUTION WIDTH 28.6 % (11.6-14.6)
[2020-11-03 17:48] LABS: CHLORIDE 101 mEq/L (98-107)
[2020-11-03] MEDS ORDERED: PIPERACILLIN/TAZOBACTAM 3.375GM/50ML PREMIX IV ONE (18:30)
[2020-11-03] MEDS ORDERED: DEXTROSE 50% WATER 50ML SYRINGE IV NR (18:45)
[2020-11-03] MEDS ORDERED: ALBUTEROL (0.083%) 2.5MG/3ML NEB HHN NR (18:45)
[2020-11-03] MEDS ORDERED: SODIUM POLYSTYRENE SULFONATE 15 G/60 ML BOT PO NR ×3 (18:45→22:00)
[2020-11-03] MEDS ORDERED: SODIUM BICARBONATE 8.4% 1 MEQ/ML 50ML SYR IV NR (18:45)
[2020-11-03] MEDS ORDERED: INSULIN REGULAR (HUMULIN R) 300UNITS/3ML VIAL IV NR (18:45)
[2020-11-03 18:59] LABS: CLARITY URINE TURBID (CLEAR); COLOR URINE YELLOW (YELLOW); KETONES URINE NEGATIVE (NEGATIVE); LEUKOCYTE ESTERASE URINE 3+ (NEGATIVE); NITRITE URINE NEGATIVE (NEGATIVE); OCCULT BLOOD URINE 1+ (NEGATIVE); PROTEIN URINE TRACE (NEGATIVE); SPECIFIC GRAVITY URINE 1.012 (1.005-1.030); UROBILINOGEN URINE 0.2 E.U./dL (0.2-1.0)
[2020-11-03] MEDS ORDERED: PIPERACILLIN/TAZ 3.375G PREMIX 50 ML IV NR (19:00)
[2020-11-03] MEDS ORDERED: ALBUTEROL (0.5%) 2.5MG/0.5ML NEB HHN ONE (19:00)
[2020-11-03] MEDS ORDERED: VANCOMYCIN 1 G PREMIX 200 ML IV NR (19:00)
[2020-11-03] MEDS ORDERED: CALCIUM CHLORIDE 1,000 MG in DEXT 5% WATER 90 ML IV NR (19:15)
[2020-11-03 19:35] LABS: PLATELET ESTIMATE NORMAL
[2020-11-03] MEDS ORDERED: DOPAMINE 400MG/250ML PREMIX 250 ML IV ONE (19:45)
[2020-11-03] MEDS ORDERED: ZOLPIDEM TARTRATE 5MG TABLET PO PRN (20:30)
[2020-11-03] MEDS ORDERED: ONDANSETRON HCL 4MG/2ML INJ IV PRN (20:30)
[2020-11-03] MEDS ORDERED: ENOXAPARIN 40MG/0.4ML SYR SUBCUT SCH (20:30)
[2020-11-03] MEDS ORDERED: ACETAMINOPHEN 325MG TABLET PO PRN (20:30)
[2020-11-03] MEDS ORDERED: CLONIDINE 0.1MG TABLET PO PRN (20:30)
[2020-11-03] MEDS ORDERED: MAGNESIUM/ALUMINUM HYDROXIDE/SIMETHICONE 30ML UDC PO PRN (20:30)
[2020-11-03] MEDS ORDERED: NITROGLYCERIN 0.4MG TABLET SL SL PRN (20:30)
[2020-11-03] MEDS: FAMOTIDINE 20MG TABLET PO SCH (22:13)
[2020-11-03] MEDS: ENOXAPARIN 30MG/0.3ML SYR SUBCUT SCH (22:13)
[2020-11-03] MEDS: ASCORBIC ACID 500 MG TABLET PO SCH (22:13)
[2020-11-03 22:17] LABS: VITAMIN B12 SERUM > 2000.0 pg/mL (211-911)
[2020-11-03] MEDS ORDERED: NOREPINEPHRINE 8 MG in DEXT 5% WATER 242 ML IV PRN (22:30)
[2020-11-03 23:24] LABS: CREATINE KINASE MB FRACTION 3.6 ng/mL (0.5-3.6)
[2020-11-03 23:25] LABS: CREATINE KINASE 211 IU/L (39-308)
[2020-11-04] VITALS (12 sets, daily range): BP systolic 45–135; BP diastolic 21–81
[2020-11-04] MEDS: IPRATROPIUM/ALBUTEROL 0.5-3(2.5)MG/3ML NEB NEB PRN (02:13)
[2020-11-04] MEDS: KETOROLAC 15MG/ML VIAL IV PRN ×2 (03:55→17:23)
[2020-11-04] MEDS: PIPERACILLIN/TAZ 3.375G PREMIX 50 ML IV SCH ×3 (03:55→20:15)
[2020-11-04] MEDS ORDERED: NOREPINEPHRINE 8MG/250ML PMX 250 ML IV PRN ×2 (06:30→22:30)
[2020-11-04] MEDS: ASCORBIC ACID 500 MG TABLET PO SCH ×2 (09:28→23:52)
[2020-11-04] MEDS: ZINC SULFATE 220 MG ( 50 ) CAPSULE PO SCH (09:28)
[2020-11-04] MEDS: CHOLECALCIFEROL (D3) 1000 UNIT TABLET PO SCH (09:28)
[2020-11-04] MEDS: ASPIRIN 325MG EC TABLET PO SCH (09:28)
[2020-11-04] MEDS ORDERED: VANCOMYCIN 750 MG PREMIX 150 ML IV SCH ×2 (11:00→19:00)
[2020-11-04 13:38] LABS: CHLORIDE 108 mEq/L (98-107)
[2020-11-04 13:44] LABS: PHOSPHORUS 3.1 mg/dL (2.5-4.9)
[2020-11-04 13:53] LABS: CREATINE KINASE MB FRACTION 4.1 ng/mL (0.5-3.6)
[2020-11-04 13:59] LABS: HEMATOCRIT. 28.8 % (42.0-52.0); MEAN CORPUSCULAR HEMOGLOBIN 25.8 pg (28.0-32.0); MEAN CORPUSCULAR VOLUME 74.6 fL (80.0-94.0); MEAN PLATELET VOLUME 7.1 fl (7.4-10.4); PLATELET 410 x1000/uL (130-400); RED BLOOD CELL COUNT 3.86 mill/uL (4.7-6.1); RED CELL DISTRIBUTION WIDTH 28.8 % (11.6-14.6)
[2020-11-04 14:43] LABS: PLATELET ESTIMATE SLIGHTLY INCREASED
[2020-11-04] MEDS: SODIUM CHLORIDE 0.9% 1,000 ML IV SCH (17:24)
[2020-11-04] MEDS: NOREPINEPHRINE 8 MG in DEXTROSE 5% WATER 250 ML IV PRN (23:47)
[2020-11-04] MEDS: ENOXAPARIN 30MG/0.3ML SYR SUBCUT SCH (23:52)
[2020-11-04] MEDS: FAMOTIDINE 20MG TABLET PO SCH (23:52)
[2020-11-05] VITALS (82 sets, daily range): BP systolic 71–154; BP diastolic 45–82
[2020-11-05] MEDS: SODIUM CHLORIDE 0.9% 1,000 ML IV SCH ×2 (04:54→18:18)
[2020-11-05 05:36] LABS: CHLORIDE 114 mEq/L (98-107)
[2020-11-05 05:46] LABS: HEMATOCRIT. 31.9 % (42.0-52.0); HEMOGLOBIN. 10.6 g/dL (14.0-18.0); MEAN CORPUSCULAR VOLUME 75.6 fL (80.0-94.0); MEAN PLATELET VOLUME 6.9 fl (7.4-10.4); PLATELET 413 x1000/uL (130-400); RED BLOOD CELL COUNT 4.22 mill/uL (4.7-6.1); RED CELL DISTRIBUTION WIDTH 29.4 % (11.6-14.6)
[2020-11-05] MEDS: PIPERACILLIN/TAZOBACTAM 3.375G in DEXT 5% WATER 50ML IV SCH ×3 (06:07→21:15)
[2020-11-05] MEDS: BLOOD SUGAR DIAGNOSTIC STRIP TEST SCH ×4 (07:13→21:00)
[2020-11-05] MEDS: INSULIN LISPRO 100 UNITS/ML SUBCUT SCH ×4 (07:13→21:00)
[2020-11-05] MEDS: CHOLECALCIFEROL (D3) 1000 UNIT TABLET PO SCH (09:09)
[2020-11-05] MEDS: ZINC SULFATE 220 MG ( 50 ) CAPSULE PO SCH (09:09)
[2020-11-05] MEDS: ASPIRIN 325MG EC TABLET PO SCH (09:09)
[2020-11-05] MEDS: ASCORBIC ACID 500 MG TABLET PO SCH ×2 (09:09→21:15)
[2020-11-05] MEDS ORDERED: MAGNESIUM 1 G PREMIX 100 ML IV SCH (10:00)
[2020-11-05] MEDS: NOREPINEPHRINE 8 MG in DEXTROSE 5% WATER 250 ML IV PRN ×2 (11:03→22:17)
[2020-11-05] MEDS: VANCOMYCIN 750 MG PREMIX 150 ML IV SCH (12:54)
[2020-11-05 14:35] LABS: PLATELET ESTIMATE SLIGHTLY INCREASED
[2020-11-05] MEDS: IPRATROPIUM/ALBUTEROL 0.5-3(2.5)MG/3ML NEB NEB PRN (20:47)
[2020-11-05] MEDS: FAMOTIDINE 20MG TABLET PO SCH (21:15)
[2020-11-05] MEDS: ENOXAPARIN 30MG/0.3ML SYR SUBCUT SCH (22:16)
[2020-11-06] VITALS (98 sets, daily range): BP systolic 65–146; BP diastolic 39–90
[2020-11-06 05:29] LABS: BASOPHILS % 0.5 % (0.0-2.0); EOSINOPHILS % 2.7 % (0.0-5.0); HEMATOCRIT. 31.8 % (42.0-52.0); HEMOGLOBIN. 10.8 g/dL (14.0-18.0); LYMPHOCYTES % 8.8 % (20.0-50.0); MEAN CORPUSCULAR HEMOGLOBIN 25.5 pg (28.0-32.0); MEAN CORPUSCULAR VOLUME 75.2 fL (80.0-94.0); MEAN PLATELET VOLUME 6.9 fl (7.4-10.4); MONOCYTES % 5.7 % (2.0-8.0); NEUTROPHILS % 82.3 % (40.0-76.0); PLATELET 226 x1000/uL (130-400); RED BLOOD CELL COUNT 4.22 mill/uL (4.7-6.1); RED CELL DISTRIBUTION WIDTH 29.6 % (11.6-14.6)
[2020-11-06] MEDS: PIPERACILLIN/TAZOBACTAM 3.375G in DEXT 5% WATER 50ML IV SCH ×3 (05:34→21:09)
[2020-11-06] MEDS: VANCOMYCIN 750 MG PREMIX 150 ML IV SCH (05:35)
[2020-11-06 05:48] LABS: CHLORIDE 111 mEq/L (98-107)
[2020-11-06] MEDS: SODIUM CHLORIDE 0.9% 1,000 ML IV SCH (08:01)
[2020-11-06] MEDS: BLOOD SUGAR DIAGNOSTIC STRIP TEST SCH ×4 (08:01→21:29)
[2020-11-06] MEDS: INSULIN LISPRO 100 UNITS/ML SUBCUT SCH ×4 (08:04→21:00)
[2020-11-06] MEDS: ZINC SULFATE 220 MG ( 50 ) CAPSULE PO SCH (08:23)
[2020-11-06] MEDS: ASCORBIC ACID 500 MG TABLET PO SCH ×2 (08:23→21:08)
[2020-11-06] MEDS: ASPIRIN 325MG EC TABLET PO SCH (08:23)
[2020-11-06] MEDS: CHOLECALCIFEROL (D3) 1000 UNIT TABLET PO SCH (08:24)
[2020-11-06] MEDS: IPRATROPIUM/ALBUTEROL 0.5-3(2.5)MG/3ML NEB NEB PRN (09:16)
[2020-11-06] MEDS: ACETAMINOPHEN 325MG TABLET PO PRN ×2 (09:47→14:33)
[2020-11-06] MEDS: DOCUSATE SODIUM 100MG CAPSULE PO PRN (09:47)
[2020-11-06] MEDS: MIDODRINE HCL 2.5MG TABLET PO SCH ×2 (13:16→21:08)
[2020-11-06] MEDS: NOREPINEPHRINE 8 MG in DEXTROSE 5% WATER 250 ML IV PRN (13:21)
[2020-11-06] MEDS: FAMOTIDINE 20MG TABLET PO SCH (21:08)
[2020-11-06] MEDS: ENOXAPARIN 30MG/0.3ML SYR SUBCUT SCH (21:09)
[2020-11-07] VITALS (93 sets, daily range): BP systolic 71–146; BP diastolic 46–92
[2020-11-07] MEDS: SODIUM CHLORIDE 0.9% 1,000 ML IV SCH ×3 (03:33→19:24)
[2020-11-07] MEDS: MIDODRINE HCL 2.5MG TABLET PO SCH ×3 (05:50→21:09)
[2020-11-07] MEDS: PIPERACILLIN/TAZOBACTAM 3.375G in DEXT 5% WATER 50ML IV SCH ×3 (05:50→21:09)
[2020-11-07] MEDS: NOREPINEPHRINE 8 MG in DEXTROSE 5% WATER 250 ML IV PRN (05:56)
[2020-11-07] MEDS: INSULIN LISPRO 100 UNITS/ML SUBCUT SCH ×4 (08:14→21:00)
[2020-11-07] MEDS: ASCORBIC ACID 500 MG TABLET PO SCH ×2 (08:14→20:02)
[2020-11-07] MEDS: BLOOD SUGAR DIAGNOSTIC STRIP TEST SCH ×4 (08:14→21:08)
[2020-11-07] MEDS: ZINC SULFATE 220 MG ( 50 ) CAPSULE PO SCH (08:14)
[2020-11-07] MEDS: ASPIRIN 325MG EC TABLET PO SCH (08:15)
[2020-11-07] MEDS: CHOLECALCIFEROL (D3) 1000 UNIT TABLET PO SCH (08:15)
[2020-11-07] MEDS: ACETAMINOPHEN 325MG TABLET PO PRN ×2 (08:15→13:36)
[2020-11-07 10:24] LABS: CHLORIDE 111 mEq/L (98-107)
[2020-11-07 13:08] LABS: BASOPHILS % 0.6 % (0.0-2.0); EOSINOPHILS % 3.1 % (0.0-5.0); LYMPHOCYTES % 14.6 % (20.0-50.0); MEAN CORPUSCULAR HEMOGLOBIN 25.2 pg (28.0-32.0); MEAN CORPUSCULAR VOLUME 75.4 fL (80.0-94.0); MEAN PLATELET VOLUME 6.4 fl (7.4-10.4); MONOCYTES % 7.8 % (2.0-8.0); NEUTROPHILS % 73.9 % (40.0-76.0); RED BLOOD CELL COUNT 3.98 mill/uL (4.7-6.1); RED CELL DISTRIBUTION WIDTH 30.8 % (11.6-14.6)
[2020-11-07 13:25] LABS: PLATELET 317 x1000/uL (130-400)
[2020-11-07] MEDS: FAMOTIDINE 20MG TABLET PO SCH (20:02)
[2020-11-07] MEDS: MIRTAZAPINE 15MG TABLET PO SCH (20:02)
[2020-11-07] MEDS: ENOXAPARIN 30MG/0.3ML SYR SUBCUT SCH (21:10)
[2020-11-08] VITALS (93 sets, daily range): BP systolic 72–129; BP diastolic 33–88
[2020-11-08] MEDS: PIPERACILLIN/TAZOBACTAM 3.375G in DEXT 5% WATER 50ML IV SCH ×3 (05:07→21:51)
[2020-11-08] MEDS: MIDODRINE HCL 2.5MG TABLET PO SCH (05:07)
[2020-11-08] MEDS: ACETAMINOPHEN 325MG TABLET PO PRN ×3 (05:49→22:06)
[2020-11-08 07:21] LABS: EOSINOPHILS % 4.4 % (0.0-5.0); HEMATOCRIT. 29.4 % (42.0-52.0); HEMOGLOBIN. 9.9 g/dL (14.0-18.0); LYMPHOCYTES % 17.2 % (20.0-50.0); MEAN CORPUSCULAR HEMOGLOBIN 25.3 pg (28.0-32.0); MEAN CORPUSCULAR VOLUME 75.3 fL (80.0-94.0); MONOCYTES % 7.6 % (2.0-8.0); NEUTROPHILS % 69.8 % (40.0-76.0); RED CELL DISTRIBUTION WIDTH 30.9 % (11.6-14.6)
[2020-11-08] MEDS: BLOOD SUGAR DIAGNOSTIC STRIP TEST SCH ×4 (07:37→21:27)
[2020-11-08] MEDS: INSULIN LISPRO 100 UNITS/ML SUBCUT SCH ×4 (07:37→21:00)
[2020-11-08] MEDS: ASPIRIN 325MG EC TABLET PO SCH (08:00)
[2020-11-08] MEDS: ZINC SULFATE 220 MG ( 50 ) CAPSULE PO SCH (08:01)
[2020-11-08] MEDS: DOCUSATE SODIUM 100MG CAPSULE PO PRN ×2 (08:01→16:39)
[2020-11-08] MEDS: CHOLECALCIFEROL (D3) 1000 UNIT TABLET PO SCH (08:01)
[2020-11-08] MEDS: ASCORBIC ACID 500 MG TABLET PO SCH ×2 (08:01→21:27)
[2020-11-08 08:13] LABS: CHLORIDE 113 mEq/L (98-107)
[2020-11-08] MEDS: SODIUM CHLORIDE 0.9% 1,000 ML IV SCH (11:29)
[2020-11-08 12:19] LABS: PLATELET 262 x1000/uL (130-400)
[2020-11-08] MEDS: MIDODRINE HCL 5MG TABLET PO SCH ×2 (13:25→16:39)
[2020-11-08] MEDS: NOREPINEPHRINE 8 MG in DEXTROSE 5% WATER 250 ML IV PRN (14:10)
[2020-11-08] MEDS: GUAIFENESIN 200MG/10ML SUGAR FREE UDC PO PRN (14:39)
[2020-11-08] MEDS: DEXTROSE 50% WATER 50ML SYRINGE IV PRN (17:49)
[2020-11-08] MEDS: FAMOTIDINE 20MG TABLET PO SCH (21:27)
[2020-11-08] MEDS: ENOXAPARIN 30MG/0.3ML SYR SUBCUT SCH (21:27)
[2020-11-08] MEDS: MIRTAZAPINE 15MG TABLET PO SCH (21:27)
[2020-11-09] VITALS (96 sets, daily range): BP systolic 73–129; BP diastolic 40–81
[2020-11-09] MEDS: DEXTROSE 50% WATER 50ML SYRINGE IV PRN ×2 (00:01→06:47)
[2020-11-09] MEDS: SODIUM CHLORIDE 0.9% 1,000 ML IV SCH ×2 (01:42→14:43)
[2020-11-09] MEDS: PIPERACILLIN/TAZOBACTAM 3.375G in DEXT 5% WATER 50ML IV SCH (06:45)
[2020-11-09] MEDS: BLOOD SUGAR DIAGNOSTIC STRIP TEST SCH ×4 (06:46→21:21)
[2020-11-09] MEDS: INSULIN LISPRO 100 UNITS/ML SUBCUT SCH ×4 (06:46→21:00)
[2020-11-09 08:02] LABS: BASOPHILS % 0.4 % (0.0-2.0); EOSINOPHILS % 5.3 % (0.0-5.0); HEMATOCRIT. 27.5 % (42.0-52.0); HEMOGLOBIN. 9.3 g/dL (14.0-18.0); LYMPHOCYTES % 18.1 % (20.0-50.0); MEAN CORPUSCULAR HEMOGLOBIN 25.4 pg (28.0-32.0); MEAN CORPUSCULAR VOLUME 75.3 fL (80.0-94.0); MEAN PLATELET VOLUME 6.8 fl (7.4-10.4); MONOCYTES % 8.3 % (2.0-8.0); NEUTROPHILS % 67.9 % (40.0-76.0); PLATELET 257 x1000/uL (130-400); RED BLOOD CELL COUNT 3.66 mill/uL (4.7-6.1); RED CELL DISTRIBUTION WIDTH 31.4 % (11.6-14.6)
[2020-11-09 08:16] LABS: CHLORIDE 114 mEq/L (98-107)
[2020-11-09] MEDS: ASPIRIN 325MG EC TABLET PO SCH (08:22)
[2020-11-09] MEDS: CHOLECALCIFEROL (D3) 1000 UNIT TABLET PO SCH (08:23)
[2020-11-09] MEDS: ZINC SULFATE 220 MG ( 50 ) CAPSULE PO SCH (08:23)
[2020-11-09] MEDS: ASCORBIC ACID 500 MG TABLET PO SCH ×2 (08:23→21:21)
[2020-11-09] MEDS: MIDODRINE HCL 5MG TABLET PO SCH ×3 (08:24→21:42)
[2020-11-09] MEDS: ACETAMINOPHEN 325MG TABLET PO PRN ×2 (08:42→15:10)
[2020-11-09] MEDS ORDERED: POTASSIUM CHLORIDE 20MEQ/PACKET PO NR (10:45)
[2020-11-09] MEDS: DOCUSATE SODIUM 100MG CAPSULE PO PRN ×2 (10:55→12:57)
[2020-11-09] MEDS: NOREPINEPHRINE 8 MG in DEXTROSE 5% WATER 250 ML IV PRN (11:47)
[2020-11-09] MEDS: FAMOTIDINE 20MG TABLET PO SCH (21:20)
[2020-11-09] MEDS: MIRTAZAPINE 15MG TABLET PO SCH (21:20)
[2020-11-09] MEDS: ENOXAPARIN 30MG/0.3ML SYR SUBCUT SCH (21:21)
[2020-11-10] VITALS (100 sets, daily range): BP systolic 77–151; BP diastolic 44–106
[2020-11-10] MEDS: SODIUM CHLORIDE 0.9% 1,000 ML IV SCH (04:42)
[2020-11-10 06:56] LABS: BASOPHILS % 0.6 % (0.0-2.0); EOSINOPHILS % 5.6 % (0.0-5.0); HEMATOCRIT. 26.8 % (42.0-52.0); HEMOGLOBIN. 9.1 g/dL (14.0-18.0); LYMPHOCYTES % 20.7 % (20.0-50.0); MEAN CORPUSCULAR HEMOGLOBIN 25.3 pg (28.0-32.0); MEAN CORPUSCULAR VOLUME 74.9 fL (80.0-94.0); MEAN PLATELET VOLUME 8.2 fl (7.4-10.4); MONOCYTES % 10.4 % (2.0-8.0); NEUTROPHILS % 62.7 % (40.0-76.0); PLATELET 234 x1000/uL (130-400); RED BLOOD CELL COUNT 3.58 mill/uL (4.7-6.1); RED CELL DISTRIBUTION WIDTH 31.5 % (11.6-14.6)
[2020-11-10] MEDS: MIDODRINE HCL 5MG TABLET PO SCH ×3 (06:57→22:25)
[2020-11-10] MEDS: INSULIN LISPRO 100 UNITS/ML SUBCUT SCH ×4 (06:57→20:49)
[2020-11-10] MEDS: BLOOD SUGAR DIAGNOSTIC STRIP TEST SCH ×4 (06:57→20:50)
[2020-11-10 07:01] LABS: CHLORIDE 116 mEq/L (98-107)
[2020-11-10] MEDS ORDERED: DEXT 10% WATER 500 ML IV ONE (07:30)
[2020-11-10] MEDS: CHOLECALCIFEROL (D3) 1000 UNIT TABLET PO SCH (08:24)
[2020-11-10] MEDS: ZINC SULFATE 220 MG ( 50 ) CAPSULE PO SCH (08:24)
[2020-11-10] MEDS: ASCORBIC ACID 500 MG TABLET PO SCH ×2 (08:24→20:48)
[2020-11-10] MEDS: ASPIRIN 325MG EC TABLET PO SCH (08:25)
[2020-11-10] MEDS: ACETAMINOPHEN 325MG TABLET PO PRN (14:34)
[2020-11-10] MEDS: CEFEPIME 1,000 MG in DEXTROSE 5% WATER 50 ML IV SCH (18:56)
[2020-11-10] MEDS: VANCOMYCIN 750 MG PREMIX 150 ML IV SCH ×2 (20:45→22:23)
[2020-11-10] MEDS: FAMOTIDINE 20MG TABLET PO SCH (20:46)
[2020-11-10] MEDS: MIRTAZAPINE 15MG TABLET PO SCH (20:47)
[2020-11-10] MEDS: ENOXAPARIN 30MG/0.3ML SYR SUBCUT SCH (20:50)
[2020-11-11] VITALS (95 sets, daily range): BP systolic 69–145; BP diastolic 43–95
[2020-11-11] MEDS: ACETAMINOPHEN 325MG TABLET PO PRN ×3 (01:30→22:08)
[2020-11-11] MEDS: CEFEPIME 1,000 MG in DEXTROSE 5% WATER 50 ML IV SCH ×3 (06:25→18:40)
[2020-11-11] MEDS: MIDODRINE HCL 5MG TABLET PO SCH ×3 (06:26→21:52)
[2020-11-11] MEDS: BLOOD SUGAR DIAGNOSTIC STRIP TEST SCH ×4 (06:27→21:43)
[2020-11-11] MEDS: INSULIN LISPRO 100 UNITS/ML SUBCUT SCH ×4 (06:27→21:00)
[2020-11-11 07:03] LABS: BASOPHILS % 0.6 % (0.0-2.0); EOSINOPHILS % 6.6 % (0.0-5.0); HEMATOCRIT. 26.5 % (42.0-52.0); HEMOGLOBIN. 9.1 g/dL (14.0-18.0); LYMPHOCYTES % 19.7 % (20.0-50.0); MEAN CORPUSCULAR HEMOGLOBIN 25.6 pg (28.0-32.0); MEAN CORPUSCULAR VOLUME 75.1 fL (80.0-94.0); MEAN PLATELET VOLUME 8.3 fl (7.4-10.4); MONOCYTES % 8.5 % (2.0-8.0); NEUTROPHILS % 64.6 % (40.0-76.0); PLATELET 218 x1000/uL (130-400); RED BLOOD CELL COUNT 3.54 mill/uL (4.7-6.1); RED CELL DISTRIBUTION WIDTH 32.1 % (11.6-14.6)
[2020-11-11 07:05] LABS: CHLORIDE 112 mEq/L (98-107)
[2020-11-11] MEDS: ZINC SULFATE 220 MG ( 50 ) CAPSULE PO SCH (08:48)
[2020-11-11] MEDS: ASPIRIN 325MG EC TABLET PO SCH (08:48)
[2020-11-11] MEDS: ASCORBIC ACID 500 MG TABLET PO SCH ×2 (08:48→21:52)
[2020-11-11] MEDS: CHOLECALCIFEROL (D3) 1000 UNIT TABLET PO SCH (08:49)
[2020-11-11] MEDS: VANCOMYCIN 750 MG PREMIX 150 ML IV SCH (13:23)
[2020-11-11] MEDS: IPRATROPIUM/ALBUTEROL 0.5-3(2.5)MG/3ML NEB NEB PRN (14:13)
[2020-11-11] MEDS: MIRTAZAPINE 15MG TABLET PO SCH (21:51)
[2020-11-11] MEDS: ENOXAPARIN 30MG/0.3ML SYR SUBCUT SCH (21:52)
[2020-11-11] MEDS: FAMOTIDINE 20MG TABLET PO SCH (21:53)
[2020-11-12] VITALS (96 sets, daily range): BP systolic 77–148; BP diastolic 43–89
[2020-11-12] MEDS: CEFEPIME 1,000 MG in DEXTROSE 5% WATER 50 ML IV SCH ×3 (02:57→17:33)
[2020-11-12] MEDS: NOREPINEPHRINE 8 MG in DEXTROSE 5% WATER 250 ML IV PRN (05:32)
[2020-11-12] MEDS: ACETAMINOPHEN 325MG TABLET PO PRN ×2 (05:32→20:54)
[2020-11-12] MEDS: MIDODRINE HCL 5MG TABLET PO SCH ×3 (05:32→20:55)
[2020-11-12 05:58] LABS: CHLORIDE 111 mEq/L (98-107)
[2020-11-12] MEDS: INSULIN LISPRO 100 UNITS/ML SUBCUT SCH ×4 (07:32→21:00)
[2020-11-12] MEDS: BLOOD SUGAR DIAGNOSTIC STRIP TEST SCH ×4 (07:32→20:55)
[2020-11-12] MEDS: ZINC SULFATE 220 MG ( 50 ) CAPSULE PO SCH (08:31)
[2020-11-12] MEDS: ASCORBIC ACID 500 MG TABLET PO SCH ×2 (08:31→20:54)
[2020-11-12] MEDS: ASPIRIN 325MG EC TABLET PO SCH (08:31)
[2020-11-12] MEDS: CHOLECALCIFEROL (D3) 1000 UNIT TABLET PO SCH (08:31)
[2020-11-12] MEDS: VANCOMYCIN 750 MG PREMIX 150 ML IV SCH (08:31)
[2020-11-12] MEDS: GUAIFENESIN 200MG/10ML SUGAR FREE UDC PO PRN (08:54)
[2020-11-12 09:08] LABS: BASOPHILS % 1.1 % (0.0-2.0); EOSINOPHILS % 7.7 % (0.0-5.0); HEMATOCRIT. 27.7 % (42.0-52.0); HEMOGLOBIN. 9.4 g/dL (14.0-18.0); LYMPHOCYTES % 19.9 % (20.0-50.0); MEAN CORPUSCULAR HEMOGLOBIN 25.6 pg (28.0-32.0); MEAN CORPUSCULAR VOLUME 75.1 fL (80.0-94.0); MEAN PLATELET VOLUME 8.4 fl (7.4-10.4); MONOCYTES % 11.7 % (2.0-8.0); NEUTROPHILS % 59.6 % (40.0-76.0); PLATELET 241 x1000/uL (130-400); RED BLOOD CELL COUNT 3.69 mill/uL (4.7-6.1); RED CELL DISTRIBUTION WIDTH 31.8 % (11.6-14.6)
[2020-11-12] MEDS: IPRATROPIUM/ALBUTEROL 0.5-3(2.5)MG/3ML NEB NEB PRN (09:20)
[2020-11-12] MEDS: MIRTAZAPINE 15MG TABLET PO SCH (20:54)
[2020-11-12] MEDS: ENOXAPARIN 30MG/0.3ML SYR SUBCUT SCH (20:56)
[2020-11-12] MEDS: FAMOTIDINE 20MG TABLET PO SCH (21:01)
[2020-11-13] VITALS (66 sets, daily range): BP systolic 89–138; BP diastolic 53–87
[2020-11-13] MEDS: VANCOMYCIN 750 MG PREMIX 150 ML IV SCH (03:07)
[2020-11-13] MEDS: CEFEPIME 1,000 MG in DEXTROSE 5% WATER 50 ML IV SCH ×3 (03:07→18:00)
[2020-11-13] MEDS: ACETAMINOPHEN 325MG TABLET PO PRN ×3 (06:07→18:16)
[2020-11-13] MEDS: BLOOD SUGAR DIAGNOSTIC STRIP TEST SCH ×4 (06:08→21:22)
[2020-11-13] MEDS: INSULIN LISPRO 100 UNITS/ML SUBCUT SCH ×4 (06:08→21:00)
[2020-11-13] MEDS: MIDODRINE HCL 5MG TABLET PO SCH ×3 (06:08→22:00)
[2020-11-13 06:15] LABS: BASOPHILS % 0.9 % (0.0-2.0); EOSINOPHILS % 6.8 % (0.0-5.0); HEMOGLOBIN. 9.1 g/dL (14.0-18.0); LYMPHOCYTES % 19.5 % (20.0-50.0); MEAN CORPUSCULAR HEMOGLOBIN 25.7 pg (28.0-32.0); MEAN PLATELET VOLUME 8.5 fl (7.4-10.4); MONOCYTES % 11.2 % (2.0-8.0); NEUTROPHILS % 61.6 % (40.0-76.0); PLATELET 219 x1000/uL (130-400); RED BLOOD CELL COUNT 3.56 mill/uL (4.7-6.1); RED CELL DISTRIBUTION WIDTH 31.8 % (11.6-14.6)
[2020-11-13 06:42] LABS: CHLORIDE 109 mEq/L (98-107)
[2020-11-13] MEDS: ZINC SULFATE 220 MG ( 50 ) CAPSULE PO SCH (08:31)
[2020-11-13] MEDS: CHOLECALCIFEROL (D3) 1000 UNIT TABLET PO SCH (08:31)
[2020-11-13] MEDS: ASPIRIN 325MG EC TABLET PO SCH (08:31)
[2020-11-13] MEDS: ASCORBIC ACID 500 MG TABLET PO SCH ×2 (08:31→21:02)
[2020-11-13] MEDS: FAMOTIDINE 20MG TABLET PO SCH (21:02)
[2020-11-13] MEDS: MIRTAZAPINE 15MG TABLET PO SCH (21:02)
[2020-11-13] MEDS: ENOXAPARIN 30MG/0.3ML SYR SUBCUT SCH (21:03)
[2020-11-13] MEDS: IPRATROPIUM/ALBUTEROL 0.5-3(2.5)MG/3ML NEB NEB PRN (21:11)
[2020-11-14] VITALS: BP 113/66
[2020-11-14] MEDS: VANCOMYCIN 750 MG PREMIX 150 ML IV SCH ×2 (01:57→21:23)
[2020-11-14] MEDS: CEFEPIME 1,000 MG in DEXTROSE 5% WATER 50 ML IV SCH ×3 (03:46→18:51)
[2020-11-14 04:00] VITALS: BP 125/65
[2020-11-14] MEDS: MIDODRINE HCL 5MG TABLET PO SCH ×3 (05:47→22:58)
[2020-11-14] MEDS: BLOOD SUGAR DIAGNOSTIC STRIP TEST SCH ×4 (05:54→21:43)
[2020-11-14] MEDS: INSULIN LISPRO 100 UNITS/ML SUBCUT SCH ×4 (06:11→21:00)
[2020-11-14 08:00] VITALS: BP 106/65
[2020-11-14] MEDS: ASCORBIC ACID 500 MG TABLET PO SCH ×2 (09:02→21:33)
[2020-11-14] MEDS: ASPIRIN 325MG EC TABLET PO SCH (09:02)
[2020-11-14] MEDS: CHOLECALCIFEROL (D3) 1000 UNIT TABLET PO SCH (09:03)
[2020-11-14] MEDS: ZINC SULFATE 220 MG ( 50 ) CAPSULE PO SCH (09:03)
[2020-11-14] MEDS: ACETAMINOPHEN 325MG TABLET PO PRN ×2 (09:06→18:51)
[2020-11-14 12:00] VITALS: BP 106/70
[2020-11-14 16:00] VITALS: BP 108/66
[2020-11-14 20:00] VITALS: BP 109/73
[2020-11-14] MEDS: MIRTAZAPINE 15MG TABLET PO SCH (21:33)
[2020-11-14] MEDS: FAMOTIDINE 20MG TABLET PO SCH (21:33)
[2020-11-14] MEDS: ENOXAPARIN 30MG/0.3ML SYR SUBCUT SCH (21:34)
[2020-11-15] VITALS: BP 116/67
[2020-11-15] MEDS: ACETAMINOPHEN 325MG TABLET PO PRN (00:01)
[2020-11-15] MEDS: CEFEPIME 1,000 MG in DEXTROSE 5% WATER 50 ML IV SCH ×2 (03:10→10:35)
[2020-11-15 04:00] VITALS: BP 115/70
[2020-11-15 04:42] LABS: CHLORIDE 108 mEq/L (98-107)
[2020-11-15] MEDS: BLOOD SUGAR DIAGNOSTIC STRIP TEST SCH ×4 (05:49→21:00)
[2020-11-15] MEDS: MIDODRINE HCL 5MG TABLET PO SCH ×2 (05:50→14:57)
[2020-11-15] MEDS: INSULIN LISPRO 100 UNITS/ML SUBCUT SCH ×4 (06:22→21:00)
[2020-11-15 08:00] VITALS: BP 152/85
[2020-11-15] MEDS: CHOLECALCIFEROL (D3) 1000 UNIT TABLET PO SCH (10:36)
[2020-11-15] MEDS: ASPIRIN 81MG TABLET PO SCH (10:36)
[2020-11-15] MEDS: ASCORBIC ACID 500 MG TABLET PO SCH ×2 (10:36→21:31)
[2020-11-15] MEDS: ZINC SULFATE 220 MG ( 50 ) CAPSULE PO SCH (10:37)
[2020-11-15] MEDS ORDERED: SODIUM POLYSTYRENE SULFONATE 15 G/60 ML BOT PO NR (11:00)
[2020-11-15] MEDS ORDERED: FUROSEMIDE 40MG/4ML VIAL IVP SCH (11:00)
[2020-11-15 12:00] VITALS: BP 116/79
[2020-11-15] MEDS: SODIUM HYPOCHLORITE 0.125% 473ML SOLUTION TOP SCH (12:47)
[2020-11-15] MEDS: VANCOMYCIN 750 MG PREMIX 150 ML IV SCH (14:57)
[2020-11-15 16:00] VITALS: BP 114/70
[2020-11-15 20:00] VITALS: BP 103/61
[2020-11-15] MEDS: MIRTAZAPINE 15MG TABLET PO SCH (21:31)
[2020-11-15] MEDS: FAMOTIDINE 20MG TABLET PO SCH (21:31)
[2020-11-16] VITALS: BP 118/64
[2020-11-16] MEDS: ACETAMINOPHEN 325MG TABLET PO PRN (02:03)
[2020-11-16 04:00] VITALS: BP 95/63
[2020-11-16] MEDS: INSULIN LISPRO 100 UNITS/ML SUBCUT SCH ×4 (06:23→21:00)
[2020-11-16] MEDS: BLOOD SUGAR DIAGNOSTIC STRIP TEST SCH ×4 (06:23→21:00)
[2020-11-16] MEDS: IPRATROPIUM/ALBUTEROL 0.5-3(2.5)MG/3ML NEB NEB PRN ×2 (06:26→22:44)
[2020-11-16 08:00] VITALS: BP 92/53
[2020-11-16] MEDS: ASCORBIC ACID 500 MG TABLET PO SCH ×2 (08:17→22:13)
[2020-11-16] MEDS: CHOLECALCIFEROL (D3) 1000 UNIT TABLET PO SCH (08:17)
[2020-11-16] MEDS: ASPIRIN 81MG TABLET PO SCH (08:17)
[2020-11-16] MEDS: FUROSEMIDE 40MG TABLET PO SCH (08:17)
[2020-11-16] MEDS: ZINC SULFATE 220 MG ( 50 ) CAPSULE PO SCH (08:17)
[2020-11-16] MEDS: SODIUM HYPOCHLORITE 0.125% 473ML SOLUTION TOP SCH (08:18)
[2020-11-16 12:00] VITALS: BP 91/55
[2020-11-16 16:00] VITALS: BP 91/55
[2020-11-16 18:33] LABS: CHLORIDE 100 mEq/L (98-107)
[2020-11-16] MEDS: MIRTAZAPINE 15MG TABLET PO SCH (22:13)
[2020-11-16] MEDS: FAMOTIDINE 20MG TABLET PO SCH (22:13)
[2020-11-16] MEDS: ENOXAPARIN 30MG/0.3ML SYR SUBCUT SCH (22:13)
[2020-11-17] MEDS: BLOOD SUGAR DIAGNOSTIC STRIP TEST SCH ×4 (06:40→21:00)
[2020-11-17 06:48] VITALS: BP 105/49
[2020-11-17] MEDS: INSULIN LISPRO 100 UNITS/ML SUBCUT SCH ×4 (07:10→21:00)
[2020-11-17 08:00] VITALS: BP 108/54
[2020-11-17] MEDS: CHOLECALCIFEROL (D3) 1000 UNIT TABLET PO SCH (09:07)
[2020-11-17] MEDS: FUROSEMIDE 40MG TABLET PO SCH (09:07)
[2020-11-17] MEDS: ASPIRIN 81MG TABLET PO SCH (09:07)
[2020-11-17] MEDS: ZINC SULFATE 220 MG ( 50 ) CAPSULE PO SCH (09:07)
[2020-11-17] MEDS: SODIUM HYPOCHLORITE 0.125% 473ML SOLUTION TOP SCH (09:07)
[2020-11-17] MEDS: ASCORBIC ACID 500 MG TABLET PO SCH ×2 (09:07→21:00)
[2020-11-17 12:00] VITALS: BP 91/55
[2020-11-17 16:00] VITALS: BP 94/58
[2020-11-17] MEDS: ACETAMINOPHEN 325MG TABLET PO PRN (18:25)
[2020-11-17 18:56] VITALS: BP 94/58
[2020-11-17 20:00] VITALS: BP 92/65
[2020-11-17] MEDS: MIRTAZAPINE 15MG TABLET PO SCH (21:00)
[2020-11-17] MEDS: IPRATROPIUM/ALBUTEROL 0.5-3(2.5)MG/3ML NEB NEB PRN (21:53)
[2020-11-17] MEDS: ENOXAPARIN 30MG/0.3ML SYR SUBCUT SCH (23:12)
[2020-11-17] MEDS: FAMOTIDINE 20MG TABLET PO SCH (23:15)
[2020-11-18] VITALS: BP 91/50
[2020-11-18 04:00] VITALS: BP 95/41
[2020-11-18] MEDS: BLOOD SUGAR DIAGNOSTIC STRIP TEST SCH (06:40)
[2020-11-18] MEDS: INSULIN LISPRO 100 UNITS/ML SUBCUT SCH (07:10)
[2020-11-18 08:00] VITALS: BP 100/59
== END 2020-11-18 10:30 | DRG 710 ==
LOC: ER 15:55 → MICUSO 18:27 → ENRESERV 21:57 → CANRESERV 22:02 → ENRESERV 22:02 → EDBEDREQSVC 23:06 → EDBEDREQTM 23:06 → CVICU 11-04 20:28 → 7EST 11-13 20:32
PROVIDERS: ADMIT Internal Medicine; ATTEND Internal Medicine
PROC: 02H633Z Insertion of Infusion Device into Right Atrium, Percutaneous Approach (ICD-10-PCS; principal; 2020-11-03)
PROC: B548ZZA Ultrasonography of Superior Vena Cava, Guidance (ICD-10-PCS; 2020-11-03)
PROC: 0KBT0ZZ Excision of Left Lower Leg Muscle, Open Approach (ICD-10-PCS; 2020-11-10)
PROC: 0JBP0ZZ Excision of Left Lower Leg Subcutaneous Tissue and Fascia, Open Approach (ICD-10-PCS; 2020-11-16)
PROC: 0JBN0ZZ Excision of Right Lower Leg Subcutaneous Tissue and Fascia, Open Approach (ICD-10-PCS; 2020-11-16)
DX: A41.9 Sepsis, unspecified organism (principal); N17.0 Acute kidney failure with tubular necrosis; R65.21 Severe sepsis with septic shock; G92 Toxic encephalopathy; I50.23 Acute on chronic systolic (congestive) heart failure; E43 Unspecified severe protein-calorie malnutrition; E86.0 Dehydration; L89.624 Pressure ulcer of left heel, stage 4; L89.156 Pressure-induced deep tissue damage of sacral region; E11.51 Type 2 diabetes mellitus with diabetic peripheral angiopathy without gangrene; F03.90 Unspecified dementia, unspecified severity, without behavioral disturbance, psychotic disturbance, mood disturbance, and anxiety; I11.0 Hypertensive heart disease with heart failure; E87.5 Hyperkalemia; E11.9 Type 2 diabetes mellitus without complications; E78.00 Pure hypercholesterolemia, unspecified; E87.1 Hypo-osmolality and hyponatremia; J44.9 Chronic obstructive pulmonary disease, unspecified; K21.9 Gastro-esophageal reflux disease without esophagitis; N39.0 Urinary tract infection, site not specified; N40.0 Benign prostatic hyperplasia without lower urinary tract symptoms; L85.3 Xerosis cutis; I45.10 Unspecified right bundle-branch block; Z79.84 Long term (current) use of oral hypoglycemic drugs; Z79.899 Other long term (current) drug therapy; Z68.1 Body mass index [BMI] 19.9 or less, adult
CPT/HCPCS: 36415; 71045; 73620; 80048; 80053; 80061; 80202; 81003; 82040; 82550; 82553; 82607; 82746; 82962; 83036; 83540; 83550; 83605; 83735; 84100; 84134; 84484; 85025; 85651; 86140; 87070; 87075; 87077; 87186; 93005; 93306; 93923; 93970; 94640; 99291; C1893; J0692; J1265; J1650; J1815; J1885; J1940; J2543; J3370; J3475; J3490; J7030; J7040; J7060